=== PATIENT | female | born 1950 | race Caucasian/White ===

== ENCOUNTER 2018-11-30 17:48 | Inpatient (IN) | payer OTHER ==
[~2018-11-30] VITALS: Ht 157.5 cm; Wt 49.9 kg
--- NOTE | ~2018-11-30 | EEG ---
[facility] [place] [address] ELECTROENCEPHALOGRAM Name: VINITA WARD Room #: 525B-B [facility] IN M.R.#: [id number] ������������������ Admission: 11/30/18 ������������������ Attend Phys: Landy Hinkle Discharge: 12/09/18 ������������������ Date of : 54 Report #: [id number] ����������������������������������������������������������������� [id number] THIS REPORT FOR: //name// CC: Gibson Kelly FAM unknown DATE OF SERVICE: 12/08/2018 This patient is being evaluated for tremors. EEG was done by placing the electrodes by standard 10-20 system of electrode placement. Both referential and sequential montages were used for recording. Background activity in this patient's EEG is about 8 Hz and 30 microvolt. The patient went to sleep and that was associated with bilateral slowing and vertex sharp waves. Photic stimulation is unremarkable. Throughout the record, no active epileptiform activity was noticed. IMPRESSION: This is an abnormal electroencephalogram because it is intermixed with theta range slowing on both sides. That is a nonspecific abnormality, which can occur with encephalopathy, effects of psychotropic medication, dementia, etc. Clinical correlation is recommended. No active epileptiform activity was noticed. Thank you very much for this referral. ���������������������������������������� ���������������������������������������� By: ��������������������������������������������� 1310 1315 Sunday Rodriguez MD /nt
[~2018-11-30 17:48] MED LIST: ASPIRIN325 PO; ATIVAN2 MG PO; CELEXA40 MG PO; CYMBALTA60 MG PO; NORTRIPTYLINE H50 M3 PO; PLAVIX 75 MG TA75 MG PO; TOPROL XL100 MG PO; ZOCOR PO
[2018-11-30 17:58] VITALS: BP 104/48
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
[2018-11-30 20:33] LABS: ABSOLUTE NEUTROPHILS 4.7 thou/uL (1.4-8.2); EOSINOPHILS 1.4 % (0.0-3.0); HEMATOCRIT 41.3 % (37.0-47.0); HEMOGLOBIN 14.3 gm/dL (12.0-15.0); LYMPHOCYTES 29.4 % (24.0-44.0); MCH 33.9 pg (26.0-34.0); MCHC 34.5 g/dL (28.0-37.0); MCV 98.2 fL (80.0-100.0); MONOCYTES 5.9 % (1.0-8.0); PLATELET COUNT 197 thou/uL (150-400); POLYS 62.3 % (36.0-66.0); RBC 4.21 mil/uL (4.20-5.00); RDW 15.4 % (10.5-14.5); WBC 7.5 thou/uL (4.0-11.0)
[2018-11-30 20:34] LABS: URINE BILIRUBIN NEGATIVE (Negative); URINE BLOOD TRACE (Negative); URINE CLARITY CLEAR; URINE COLOR YELLOW; URINE GLUCOSE-RANDOM* NEGATIVE (Negative); URINE KETONES NEGATIVE (Negative); URINE LEUKOCYTES-REFLEX NEGATIVE (Negative); URINE NITRITE-REFLEX NEGATIVE (Negative); URINE PROTEIN (DIPSTICK) NEGATIVE (Negative); URINE SPECIFIC GRAVITY <= 1.005 (1.005-1.035); URINE UROBILINOGEN 0.2 E.U./dl (0.2-1.0)
[2018-11-30 20:41] LABS: CALCIUM 9.1 mg/dL (8.5-10.1); CREATININE 0.8 mg/dL (0.6-1.0); POTASSIUM 3.9 mmol/L (3.5-5.1)
[2018-11-30 21:49] LABS: FOLIC ACID 11.7 ng/mL (8.6-58.9)
[2018-11-30 22:15] VITALS: BP 144/72
[2018-11-30 22:45] VITALS: BP 151/81
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
--- NOTE | 2018-12-01 06:38 | NUR ---
PATIENT SLEPT 5.4 HOURS PER APIGEE DEVELOPER, SEE LATE ADMISSION TIME.
[2018-12-01 08:00] VITALS: BP 131/81
[2018-12-01 09:04] VITALS: BP 131/76
--- NOTE | 2018-12-01 09:20 | NUR ---
PT ATE BREAKFAST AND NOW ATTENDING AM GROUP.
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
--- NOTE | 2018-12-01 11:58 | NUR ---
SW left a voicemail for pt brother to schedule a family meeting. SHRUTHI provided contact information, and requested a return call. SHRUTHI will follow-up with pt on tomorrow.
--- NOTE | 2018-12-01 12:30 | NUR ---
PT ENCOURAGED TO TAKE A SHOWER, PT RESISTED AT FIRST STATING SHE WILL WAIT TILL SHE GOES HOME. PT HAIR MATTED, AND DIRT BETWEEN TOES. PT SET UP FOR SHOWER AND WENT AHEAD AND TOOK SHOWER. PT HAS SKIN TEAR TO LEFT HAND SEWN UP BY SUTURES. NO SIGNS OF REDDNESS. WILL REPLACE DRESSING AFTER SHOWER.
--- NOTE | 2018-12-01 12:40 | NUR ---
PT STATED SHE FELT ALOT BETTER. TOOK PICS OF LEFT HAND, APPLIED VASELINE GAUZE TO SUTURED AREA AND WRAPPED WITH KERLEX AND SECURED WITH TAPE.
[2018-12-01] MEDS ORDERED: LOPRESSOR50 PO (13:19)
--- NOTE | 2018-12-01 14:21 | NUR ---
SW schedule family meeting on December 06, 2018.
--- NOTE | 2018-12-01 14:50 | NUR ---
DR. PATEL HERE TO YAIR. PT ALSO LOOKED AT BLACK HEAD ON BACK, RECOMENDED A DERMITOLOGIST TO FOLLOW-UP.
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
[2018-12-01 19:37] VITALS: BP 149/86
--- NOTE | 2018-12-01 19:47 | NUR ---
ASSUMED CARE @ 1900, IN ROOM, LYING IN BED, EYES OPEN, ANSWERS QUESTIONS APPROPRIATELY, A&OX3-4. REPORTS EATS VEGAN, DRESSING ON VENTRAL HAND HAS A DRESSING C/D/I. WILL CONTINUE TO MONITOR.
[2018-12-02 01:05] LABS: HIV ANTIBODY Non Reactive (Non Reactive)
[2018-12-02 03:02] VITALS: BP 149/86
--- NOTE | 2018-12-02 08:04 | NUR ---
I dressed Patrizia wound on her L hand as the drsg was coming off. She is able to wiggle her fingers without any pain or stiffness. The dorasl side of her L hand is bruised. The sitiches are dry and intact. Cap refill < 2 sec. She denies any pain. The area is warm to touch.
[2018-12-02 08:17] VITALS: BP 133/80
--- NOTE | 2018-12-02 08:20 | EKG ---
[place] [address] [employer] [place] [place] [address] ELECTROCARDIOGRAM REPORT Name: VINITA WARD Room #: 52[facility] ADM IN M.R.#: [id number] ������������������ Admission: 11/30/18 ������������������ Attend Phys: Gibson Kelly DO Discharge: ������������������ Date of : 54 Report #: [id number] ����������������������������������������������������������������� [id number] THIS REPORT FOR: //name// [facility] Test Date: 2018-12-01 Test Time: 16:06:43 Pat Name: VINITA WARD Department: Room: [facility] B Gender: F Residential Subcontractor: ZAY : 1950 Requested By: Gibson Kelly Order Number: [id number] MD: Timmy Galdamez Measurements Intervals Bement Rate: 103 P: 78 SD: 182 QRS: 39 QRSD: 103 T: 66 QT: 375 QTc: 491 Interpretive Statements Sinus tachycardia Right atrial enlargement Nonspecific ST segment abnormality Compared to ECG 12/06/2013 08:19:17 Atrial abnormality now present Electronically Signed On 12-02-2018 8:20:22 CDT by Timmy Galdamez [email or web address] ��������������������������������������������� <ELECTRONICALLY SIGNED> ���������������������������������������� By: Timmy Galdamez MD, [facility] ��������������������������������������������� 12/02/18 0820 1606 05 Timmy Galdamez MD, [facility] /EPI
--- NOTE | 2018-12-02 11:14 | NUR ---
PSYCHOSOCIAL ASSESSMENT Diagnosis: DEMENTIA, GRAVE DISABILITY Admit Date: 11/30/18 Psychiatrist: SNEHAL Symptoms associated with current admission: Depressed mood Hopelessness Activity level change Presenting problems: Pt had a fracture wrist. Pt was exhibit confusion. Pt house is not acceptable to live in. Pt activity level change which cause her to feel hopeless. Precipitating Factors: Non-compliance psychothx Non-compliance psychothx Non-compliance medication Comments: Pt stated that she does not sleep well. Pt stated that she is up at night. History of High Risk Behavors: Other Suicide Risk Factors: D A-Signs of alcohol/substance abuse w/ suicide ideation B-Recent suicidal thoughts or attempts C-Recent thoughts or attempts of harming someone else D-Altered mental status due to psychiatric/chem dep etiology E-The behavior exists - add comment PSYCHIATRIC HISTORY Age of onset: 68 Prior hospitalizations: Denies hx hospitalization Hospital names and dates, if available: Most Recent Outpatient HX: Denies prior OP services Additional information: Legal Status: Voluntary Guardian/Conservatorship type: Contact name: Contact phone: Other: Name: Phone: Other legal issues: (Arrests/convictions Current Status) None P.O. Name and Phone #: FAMILY HISTORY Place of : [place], [place] Raised in: [place] # Siblings & order: Pt has 2 sibilings, youngest Describe relationships within family of origin: Pt stated that she has close relationship. Pt stated that she speaks with her brother who lives here everyday. Any psychiatric or substance abuse problems within family of origin: Y Has patient been sexually or physically abused, neglected or been taken advantage of financially? N Has the abuse been reported? N Other pertinent family information: Marital history/significant relationships: Domestic violence: N Children ages & who is caring for them: Pt does not have a child Is child welfare involved? N Drug history: None Alcohol Use: Frequency: Quantity: Have you ever felt you ought to Cut down on drinking? Have people Annoyed you by criticizing your drinking? Have you ever felt bad or Guilty about your drinking? Have you ever had a drink first thing in the morning to steady your nerves/get rid of a hangover(Eye dopeman) CAGE TOTAL 0 If CAGE score is 3 or more, notify provider for withdrawal orders! AXIS SCREENING TOOL Patterson I Mood Disorders: Depression Patterson II Personality/Mental Retardation: Patterson III Medical Impairment: A-fib Constipation Seizures Patterson IV Problem(s) with: Housing Health care services Other psych/environ prob Patterson V: 50-Serious w/impairment Additional Patterson comments: PERSONAL BACKGROUND Relevant cultural issues (ethnicity, values, beliefs, spiritual): Spiritual Hindu: Tenriism Importance of jew to patient: High What hobbies/interests does the patient have? Dogs Knit Reading Piano Listening music Guitar Watching political news Sexual orientation (relevant impact to current treatment): Heterosexual : Where did you serve: Branch of service: Rank: Discharge status: Are you a combat ? Occupational/Work: Do you work? N Do you want to work? N How many hours do you work/week? 0 How many jobs have you had in the past 5 years? 0 Do you need assistance finding a job? N Does the patient need assistance in job training? N Source of income: SSI Does patient have a Payee? Payee name: Approximate monthly income: 1000 Does patient have adequate funds for next 30 days? Y Education background: Bachelor degree Highest grade completed: 12th grade Other Educational/training programs: Functional deficits: Explain functional deficits: Current living situation: House/apartment Address/phone where pt. is living: Pt lives in a house alone Does the patient plan to continue there after DC? Yes Patient lives with: Alone Will family/significant other be involved in treatment? Other community support services utilized: Pt will be assessed for memory care setting Support System Available (family/friend) Name: Jagjit Zuniga Relationship: Brother Name: Palmer Cleary Relationship: Sister Name: Phone: Relationship: Patient strengths: Family support Motivated Insight Education Patient's assets: Verbal Patient's weaknesses: Chronic hx mental illness Poor social skills Poor relationships Lack of housing Health problems Additional weaknesses: Pt has not being able to clean her house. Pt has not been able to complete her ADL's. Pt has not seen a doctor in several decades. Patient's perception of current director of social work/case management needs: Pt stated SS is someone who assist with a pt wellbeing. PRELIMINARY DISCHARGE PLAN Discharge plan/Community resource contacts: pt will be d/c home or memory care unit. Discharge needs: Pt will need a referral to a memory care unit. Problems anticipated on discharge: Compliance w/ med regimen Living arrangements Comments: (factors affecting DC plan/pt. response/interventions) Pt will need a memory care setting.
--- NOTE | 2018-12-02 16:21 | NUR ---
SW faxed a referral to [facility]. SW attention it to Carlota. SW will have weekend SW follow-up on weekend notes.
--- NOTE | 2018-12-02 17:28 | NUR ---
COOPERATIVE WITH REQUESTS OF STAFF THIS SHIFT-COMPLIENT WITH MEDS AND ASSESSMENT AND SMILES AND GREETS STAFF AND PEERS PLEASANTLY. DOES APPEAR UNKEMPT HAIR UNCOMBED,CLOTHING WITH HOLES
[2018-12-02 20:12] VITALS: BP 114/68
[2018-12-02 21:05] LABS: SYPHILIS AB Negative (Negative)
--- NOTE | 2018-12-02 21:55 | NUR ---
ASSUMED CARE OF THE PT AT 1914 PM. ALERT ET ORIENTED X 3. MAKES NEEDS KNOWN. WAS SITTING IN THE DAYROOM THIS PM, WHEN THIS FALL INTERN CAME ON DUTY. HEART RATE REGULAR, LUNGS CLEAR BILATERALLY, RESP., EVEN, AND UNLABORED. +BS HEARD IN ALL 4 QUADRANTS. RATES HER ANXIETY A 6/10 AND HER DEPRESSION A 5/10. DENIES SI AND HI CURRENTLY. DENIES A/V HALLUNICATIONS. THE PT KEPT TALKING ABOUT HOW HER BROTHER HAD NOT BEEN OUT TO SEE HERE AND THAT SHE NEEDED CLOTHING. DENIES PAIN AT THIS TIME. REMAINS ON 12 MINUTE CHECKS FOR HER SAFETY.
--- NOTE | 2018-12-03 00:21 | NUR ---
THE PT VOMITED X 1 THIS EVENING SHIFT. THIS BANDSAW OPERATOR ASSISTED THE PT BACK TO BED, STATED THAT SHE COULD GET ZOFRAN IN 15 MINUTES AT THAT TIME. AT 1205 AM, MEDICATED THE PT WITH ZOFRAN ODT, WHICH SHE TOOK ORDERED. STAFF HAD PUT THE HEAD OF HER BED UP EARLIER IN THE SHIFT, SHE STATED THAT SHE FELT BETTER, THEN SHE TOOK THE ZOFRAN. SHE STATED THAT SHE HOPED THAT SHE WOULD BE ABLE TO SLEEP NOW.
--- NOTE | 2018-12-03 06:00 | NUR ---
THE PT SLEPT 8.75 HOURS LAST NIGHT.
[2018-12-03 07:30] VITALS: BP 124/85
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
[2018-12-03 19:42] VITALS: BP 120/70
--- NOTE | 2018-12-04 05:05 | NUR ---
Care assumed of patient at 1900: Patient alert and oriented x4. Patient pleasant and cooperative. Patient has friended other peers on the unit. No s/s of seizure activity. Patient denies any nausea/vomiting. Patient took medications whole without difficulty. Patient reports that she is able to sleep better with the head of her bed elevated. Patient reports that if she lays flat, she can feel her acid reflux in her throat. Patient requested Trazodone PRN to assist her go to sleep. Patient reports that it is helpful in assisting her to relax. Patient provided PRN Trazodone 25mg at 2105. Patient reports that she is excited about a [employer] marathon that will be on TV 12/04/18. Denies any pain.
[2018-12-04 07:45] VITALS: BP 114/70
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
--- NOTE | 2018-12-04 13:47 | NUR ---
VISIBLE ON UNIT IN DAYROOM-INTRUSIVE AT TIMES IN HIS ATTEMPTS TO CARETAKE OTHERS-BUT REDIRECTS WITH PROMPTING,VERBAL QUEING. NO NOTED OR REPORTED AGITATION WITH REDIRECT SO FAR THIS SHIFT-MILDLY RESISITIVE WITH AM MEDS STATING "THAT IS TOO MANY I ONLY TAKE A COUPLE" TOOK THORAZINE AND B12 AND APPROX 1 HR LATER TOOK ALL 5 VIT D TABLETS REQUIRED FOR AM DOSING.GAIT STEADY WITHOUT Assistive DEVICES. ORINETED TO NAME ONLY. DENIES C/O PAIN/DISCOMFORT
[2018-12-04 19:40] VITALS: BP 142/72
[2018-12-04 19:57] VITALS: BP 142/72
--- NOTE | 2018-12-05 06:13 | NUR ---
Care assumed of patient at 1900 on 12/04/18: Patient smiling, pleasant, cooperative. Patient interacting well with staff and peers. Patient alert and oriented x3. Patient showing patience toward other peers and assisting in areas she is able. Patient enjoyed her day. Patient took medications whole without difficulty. Patient denies SI/HI/AH/VH. No s/s of delusions or paranoia present. Patient slept 9 hours this shift.
[2018-12-05 07:30] VITALS: BP 157/91
[2018-12-05 07:55] VITALS: BP 157/91
--- NOTE | 2018-12-05 09:30 | NUR ---
PT HAS LEFT HAND WRAPPED IN KERLEX. PT STATED SHE HASN'T HAD A DRESSING CHANGE IN A FEW DAYS. PT WEARING GOWN THIS AM. PT JUST WANTING TO DO EVERYTHING IN HER CARE IN ORDER FOR HER TO BE ABLE TO RETURN BACK TO HOME SETTING. LUNGS CLEAR. BRUISING TO LEFT HAND.
--- NOTE | 2018-12-05 15:30 | NUR ---
CHANGED DRESSING TO LEFT HAND. CLEANED WITH NS AND PATTED DRY. PT SUTURES INTACT EXCEPT FOR TOP AREA OF HAND. APPLIED OPTIFOAM GENTLE AG+, WRAPPED WITH KERLEX AND SECURED WITH TAPE.
--- NOTE | 2018-12-06 03:24 | NUR ---
ASSUMED CARE @ 19:00, IN ROOM, IN BED, EYES OPEN, RESPONDS TO VOICE. ASSESSMENT COMPLETE, DRESSING ON HAND IS C/D/I. A&OX3. HAIR AND CLOTHES APPEAR CLEAN. STILL HAS TANGLES IN THE BACK OF HER HAIR. A&O X3. DENIES SI AND HI. DENIES DEPRESSION AND ANXIETY. HS MEDS GIVEN WHOLE AND WITH WATER. WILL MONITOR Q 12 MINUTES FOR PATIENT SAFETY.
[2018-12-06 08:53] VITALS: BP 158/88
--- NOTE | 2018-12-06 11:02 | NUR ---
[id number]: Report rec from noc shift, care assumed. Sleeping in bed, awakened for a.m. meal, pt shakey with ambulation, ambulates to DR assisted w/1 staff, gait unsteady and weak. Dsg to Lt hand/arm dry/intact, bruising noted to Lt fingers, no edema noted to fingers. Feeds self with set-up assist, appetite fair, takes meds whole w/o difficulty.
--- NOTE | 2018-12-06 12:35 | NUR ---
SHRUTHI sent a referral to [facility] for Mediciad.
--- NOTE | 2018-12-06 12:36 | NUR ---
MOY and Dr. Kelly concerning pt being placed in nursing facility. Dr. Kelly diagnosed with Major Neurocognitive Disorder. MOY mention that pt does not have Medicaid. MOY mention that she will send a referral to [facility]. [facility] provided NF that assist with memory care, and accept Medicaid pending. MOY will follow-up with pt on tomorrow.
[2018-12-06 19:48] VITALS: BP 192/113
--- NOTE | 2018-12-07 05:24 | NUR ---
ASSUMED CARE @ 1900, IN DAY ROOM WITH A PLEASANT AFFECT. CLOTHES ARE CLEAN BUT WORN. HIGH BLOOD PRESSURE @ 19:45 192/113 104 22 98.2, DR BRIAN REQUESTED THAT HOSPITALIST BE CALLED FOR AN ORDR FOR BLOOD PRESSURE MEDICATION. B/P RETAKEN MANUALLY @ 22:30, 168/104 104. JONNY MONROY NP ORDERED METOPROLOL 75 MG ONE TIME DOSE, THEN DAILY. GIVEN AND FOLLOW UP B/P 155/94 104 @ 00:50. SLEPT WELL THROUGHOUT THE NOC.
--- NOTE | 2018-12-07 06:09 | NUR ---
SLEPT 8.6 HOURS OVERNIGHT.
--- NOTE | 2018-12-07 08:11 | EKG ---
[address] [place] [address] ELECTROCARDIOGRAM REPORT Name: VINITA WARD Room #: [facility] ADM IN M.R.#: [id number] ������������������ Admission: 11/30/18 ������������������ Attend Phys: Gibson Kelly DO Discharge: ������������������ Date of : 54 Report #: [id number] ����������������������������������������������������������������� [id number] THIS REPORT FOR: //name// [facility] Test Date: 2018-12-06 Test Time: 08:40:27 Pat Name: VINITA WARD Department: Room: [facility] Gender: F [employer]: [employer] : 1950 Requested By: Gibson Kelly Order Number: [id number] MD: Timmy Galdamez Measurements Intervals [place] Rate: 102 P: 69 AL: 156 QRS: 8 QRSD: 130 T: 64 QT: 381 QTc: 497 Interpretive Statements Sinus tachycardia Nonspecific ST segment abnormality Compared to ECG 12/01/2018 16:06:43 Right atrial abnormality no longer present Electronically Signed On 12-07-2018 8:11:46 CDT by Timmy Galdamez [email or web address] ��������������������������������������������� <ELECTRONICALLY SIGNED> ���������������������������������������� By: Timmy Galdamez MD, [facility] ��������������������������������������������� 12/07/1811 9 Timmy Galdamez MD, [facility] /EPI
[2018-12-07 09:25] VITALS: BP 150/74
--- NOTE | 2018-12-07 12:17 | NUR ---
GAIT IS WEAK,POOR BALANCE OBSERVED,APPEAR TO HAVE DIFFICULTY PROCESSING ONE STEP COMMANDS AND DOES NOT INITIATE COMPLETING ADLS WITHOUT CONSTANT QUEING AND PROMPTING. SPEECH IS GARBELED DIFFICULT TO UNDESRTAND AND AT TIMES INCOHERENT. BP INITALLY THIS AM 150/74-RECHECKED MANUALLY AND IS 126/78. USING ROLLER WALKER FOR AMBULATION
--- NOTE | 2018-12-07 13:51 | NUR ---
Recreational Therapy Weekly Progress Note Date of Admission: 11/30/18 Date of Activity Therapy Assessment: 12/03/18 Activity Goal: Increase self esteem Initial Goal: 2 Group activities/day Weekly progress towards goal: On track Group participation level: Moderate Behaviors observed: Patient participates in all groups unless occupied with meeting, etc. Patient is usually a full participant, though within the last 2 days of this note patient has become increasingly disoriented, softer spoken, and less engaged. Patient has developed relationships within peers in the milieu. Minimal depressive statements and less focused on home and dogs. Plan: No change towards goal
[2018-12-07 19:36] VITALS: BP 163/91
--- NOTE | 2018-12-07 23:36 | NUR ---
NURSES NOTE - SAT DOWN IN DAY ROOM WITH PT WHILE PT WAS EATING ICE CREAM, SHE WAS VISIBLY HAVING DIFFICULTY EATING ICE CREAM WITH LEFT HAND. SHE SOFTLY SPOKE TO THIS NURSE IN A GARBLED EFFECT STATING 'WILL YOU HELP ME.' THIS NURSE ASSISTED PT IN EATING. DURING MEDICATION PASS PATIENT WAS UNABLE TO TAKE PILLS HERSELF. THIS NURSE ALSO OFFERED HELP TAKING PILLS FOR WHICH PATIENT THANKED. THIS NURSE ASKED PATIENT TO PLANE RUNNER RIGHT AND LEFT POINTER FINGERS AND SQUEEZE, THIS NURSE NOTICED LESS PLANE RUNNER IN LEFT HAND. SHE APPEARS WITH A FLAT AFFECT, FAIR TO POOR HYGIENE AND DRESS, BUT WAS PLEASANT. SHE REPORTS FEELING OF DEPRESSION ET ANXIETY, SHE WOULD NOT VERBALIZE A TRIGGER. SHE DENIED SI/HI AT TIME OF ASSESSMENT. NURSING STAFF ASSISTED PATIENT WITH AN UNSTEADY GAIT TO HER ROOM TO WHICH PATIENT LAYED DOWN. WILL CONTINUE TO MONITOR AND MAINTAIN ALL PRECAUTIONS FOR SAFETY.
[2018-12-08 07:30] VITALS: BP 166/93
--- NOTE | 2018-12-08 08:00 | NUR ---
PT GETTING UP THIS AM PER NURSING TO W/C. PT NOT ABLE TO HOLD SELF UP LONG IN BED. PT HAS WOUND TO LEFT HAND, DRESSING INTACT. PT NOTICED PHYSICAL DEGRESSION. PT WEAK TO SPEAKING. PT STATED SHE FELT GOOD TODAY. PT HAS BRUISING TO LOWER LEGS. PT ABLE TO STAND TO SIT IN W/C.
--- NOTE | 2018-12-08 08:30 | NUR ---
PT NEEDED FED BREAKFAST AFTER FEEDING SELF A FEW BITES OF CREAM OF WHEAT AND APPLESAUCE. NEEDED TO HELP WITH DRINKING OUT OF CUP. PT TOO WEAK TO SUCK UP THE STRAW.
[2018-12-08 10:09] VITALS: BP 166/93
[2018-12-08 11:56] LABS: ABSOLUTE NEUTROPHILS 10.1 thou/uL (1.4-8.2); BASOPHILS 0.5 % (0.0-2.0); HEMOGLOBIN 14.7 gm/dL (12.0-15.0); MCH 33.4 pg (26.0-34.0); MCHC 34.3 g/dL (28.0-37.0); MCV 97.3 fL (80.0-100.0); MONOCYTES 5.8 % (1.0-8.0); PLATELET COUNT 300 thou/uL (150-400); POLYS 83.7 % (36.0-66.0); RBC 4.42 mil/uL (4.20-5.00); RDW 14.3 % (10.5-14.5)
[2018-12-08 12:05] LABS: CALCIUM 9.5 mg/dL (8.5-10.1); CREATININE 0.8 mg/dL (0.6-1.0); POTASSIUM 4.1 mmol/L (3.5-5.1)
--- NOTE | 2018-12-08 12:50 | NUR ---
LAYED PT DOWN X1 ASSIST. WOUND CARE TEAM HERE TO DRESS LEFT HAND.
--- NOTE | 2018-12-08 13:05 | NUR ---
STRAIGHT CATH PER ORDER TO OBTAIN URINE. PT HAD 400ML OUT OF STRAIGHT CATH, STAW COLOR URINE, CLEAR.
[2018-12-08 13:12] LABS: URINE BILIRUBIN NEGATIVE (Negative); URINE BLOOD NEGATIVE (Negative); URINE CLARITY CLEAR; URINE COLOR YELLOW; URINE GLUCOSE-RANDOM* NEGATIVE (Negative); URINE KETONES TRACE (Negative); URINE LEUKOCYTES-REFLEX NEGATIVE (Negative); URINE NITRITE-REFLEX NEGATIVE (Negative); URINE PROTEIN (DIPSTICK) NEGATIVE (Negative); URINE UROBILINOGEN 0.2 E.U./dl (0.2-1.0)
--- NOTE | 2018-12-08 13:42 | NUR ---
WOUND CARE FOLLOW UP; ROUNDING WITH DR ADDIS HAMILTON AND SARAH IRRIGATION FOREMAN. THE LEFT HAND DEHISCENCE TRAUMATIC WOUND LOOKS MUCH BETTER TODAY. NO S/S OF INFECTION, WITH MINIMAL DRAINAGE. RECOMMENDATION; CONTINUE CURRENT POC. DISCUSSED WITH JADON
[2018-12-08 15:17] LABS: URINE POTASSIUM-RANDOM* 42.2 mmol/L
--- NOTE | 2018-12-08 17:30 | NUR ---
ASSISTED PT TO EAT FOR DINNER. PT SITTING IN W/C, PT ATE SOME SHERBERT AND ALSO DRANK SOME CRANBERRY JUICE. SHE ALSO DRANK SOME WATER. PT DIDN'T WANT TO EAT THE BEANS.
[2018-12-08 20:40] VITALS: BP 139/82
--- NOTE | 2018-12-08 22:32 | NUR ---
PT SLEEPING IN W/C IN DAY ROOM UPON ARRIVAL TO SHIFT. PT ASSISTED BY TWO PEOPLE TO BED. PT WAS ABLE TO STAND AND PIVOT WITH ASSIST . PT OPENED EYES UPON REQUEST. PT SLOUCHED WHEN SITTING AND STANDING. PT DID NOT TAKE HS MEDS, TO SLEEPY TO SWALLOW. WILL MONITOR PVR AFTER URINATION.
--- NOTE | 2018-12-09 00:37 | NUR ---
DURING ROUNDS AIDES NOTED PT AWAKE. USING ACCESSORY MUSCLES TO BREATH, ABD, CHEST SHOULDERS, BUT VERALIZATIONS ARE CLEAR. NOTED GURGLING IN THROAT BUT PT WONT COUGH TO CLEAR. LUNGS WITH WHEEZE BUT PT WONT COUGH TO SEE IF CLEARS. PT DOES HAVE HAND TREMORS BUT THIS IS A PART OF HER HISTORY. TEMP 96.8, BP 160/100, 88. 88% R/A. SITE PROJECT MANAGER CALLED REVIEWED THE ABOVE, AND TOLD RECENT UA AND COMPLETED. PRN RT TXS ORDERED. RT PAGED AND WILL SEE PT. PT DENIES DISCOMFORT. SHE ASKED FOR ROOM TEMP TO BE DECREASED AND SOCKS TO BE REMOVED AND SIPS OF WATER, ALL PROVIDED.
--- NOTE | 2018-12-09 01:10 | NUR ---
RT CAME GAVE TX. O2 3L 94% AFTER TREATMENT. NOTED COARSE THROUGHOUT. PT STARTED COUGHING, SPUTUM NOTED BY NURSE CLEAR. BPM SOLUTION ARCHITECT NOTIFIED SHE REVIEWED YESTERDAYS CXR RE CHRONIC CONDITION. AT THIS TIME NO NEW ORDERS UNLESS PT DEVELOPS FEVER.
--- NOTE | 2018-12-09 03:23 | NUR ---
PT STATED SHE NEEDED TO URINATE, UP TO BSC, NO URINATION, BLADDER SCAN 335. PT STRAIGHT CATHETERIZED 350.
--- NOTE | 2018-12-09 05:38 | NUR ---
CELL TENDER HELPER UPDATED RE URINE RETENTION.
--- NOTE | 2018-12-09 05:41 | NUR ---
PT ASKED IF SHE WANTED ANOTHER RT TX SHE STATED YES, NOTED USE OF ACCESSORY MUSCLES WITH BREATHING, ABD SHOULDERS.
--- NOTE | 2018-12-09 05:59 | NUR ---
RT GAVE TX, 02 SAT 86 TO 87 ON 3L, SWITCHING TO MASK. RT SUGGESTED CALLING HOSPITALIST FOR TRANSFER, CRIB ATTENDANT CONTACTED STAT CXR ORDERED AND TOLD TO CALL FOR RAPID RESPONSE. RADIOLOGY PAGED
[2018-12-09 06:07] LABS: CALCIUM 9.6 mg/dL (8.5-10.1); CREATININE 0.7 mg/dL (0.6-1.0); POTASSIUM 3.5 mmol/L (3.5-5.1)
[2018-12-09 06:09] LABS: BE(vivo) -2.5 mmol/L (-2 to +3); HCO3 21.8 mmol/L (22.0-26.0); PO2 53.6 mmHg (80.0-100.0); pH 7.389 (7.360-7.450); sO2 87.7 % (92.0-98.0)
--- NOTE | 2018-12-09 06:25 | NUR ---
TELEX OPERATOR ACTIVATED FOR INCREASING O2 DEMANDS. ON ASSESSMENT, PATIENT IN RESP DISTRESS WITH TACHYPNEA AND ACCESSORY MUSCLE USE NOTED. SEE RAPID RESPONSE DOCUMENTATION FOR INTERVENTIONS AND FURTHER DETAILS. PT DIRECT ADMIT TO CCT.
--- NOTE | 2018-12-09 06:30 | NUR ---
PTS BROTHER CALLED AND NOTIFIED OF TRANSFER TO ICU. DR JACKSON NOTIFIED OF TRANSFER. REPORT GIVEN TO ICU NURSE. WINDSHIELD TECHNICIAN AND FLOOR STAFF TRANSFERED PT TO ICU IN BED WITH NON REBREATHER AND MONITOR.
[2018-12-09 07:03] LABS: HEMATOCRIT 45.5 % (37.0-47.0); HEMOGLOBIN 15.6 gm/dL (12.0-15.0); MCH 33.5 pg (26.0-34.0); MCHC 34.2 g/dL (28.0-37.0); MCV 98.1 fL (80.0-100.0); RBC 4.64 mil/uL (4.20-5.00); RDW 14.3 % (10.5-14.5); WBC 15.1 thou/uL (4.0-11.0)
--- NOTE | 2018-12-09 08:26 | HC ---
[facility] [place] [address] CONSULTATION Name: VINITA WARD Room #: 525B-B [facility] IN ..#: [id number] Admission: 11/30/18 ������������������ Attend Phys: Gibson Kelly, DO Discharge: 12/09/18 ������������������ Date of : 54 Report #: [id number] THIS REPORT FOR: //name// CC: Gibson Kelly FAM unknown DATE OF SERVICE: 12/07/2018 CHIEF COMPLAINT: Traumatic injury to the left hand. HISTORY OF PRESENT ILLNESS: This is a 68-year-old female patient who is on the Geriatric Psych Unit and had injured her hand when she went to use the restroom on the night of 11/30/2018. She had a primary repair performed in the Emergency Department and she was admitted to the Geriatric Psych Unit for inpatient psychiatric care by Dr. Kelly. The wound has been cared for by the wound care nurse here. It is felt that it is not improving and I have been asked to see her with regard to additional wound care recommendations. The patient is unable to provide much information about herself. PAST MEDICAL HISTORY: Positive for dementia, hand laceration due to a fall from ground level. She has a history of vitamin B12 deficiency, history of a seizure disorder, coronary artery disease, COPD, history of tobacco abuse. FAMILY HISTORY: Unknown. REVIEW OF SYSTEMS: Not obtainable due to the patient's mental status. PHYSICAL EXAMINATION: VITAL SIGNS: At this time include temperature 99, pulse 91, respiratory rate of 19, blood pressure 162/91. GENERAL: This is a chronically ill-appearing female patient who appears to be in no distress. HEENT: Head normocephalic. Nose and throat are clear. NECK: Supple. LUNGS: Clear. ABDOMEN: Soft. EXTREMITIES: Examination of the left hand demonstrates a curvilinear laceration to the dorsal aspect of the left hand, some of the sutures have been dislodged, some of the skin edges are rolled under. I have removed the sutures and I have debrided the edges of the wound with sterile Iris scissors, cleaned the base and a culture has been obtained. CLINICAL IMPRESSION: 1. Traumatic wound to the left hand, status post previous primary repair, now status post debridement and wound cleansing. Recommendations, we will recommend topical silver alginate and a gauze dressing to be changed daily. Antibiotics [address] [address] CONSULTATION Name: WARDVINITA Room #: 525B-B [facility] IN M.R.#: [id number] Admission: 11/30/18 ������������������ Attend Phys: Gibson Kelly, DO Discharge: 12/09/18 ������������������ Date of : 54 Report #: [id number] will be based pending laboratory studies. 2. Dementia with cognitive deficits. RECOMMENDATIONS: Overall local wound care as detailed above, nutritional support, antibiotic therapy, pending wound cultures. I appreciate being asked to see her in consultation. ��������������������������������������������� <ELECTRONICALLY SIGNED> ���������������������������������������� By: Donovan Pisano MD ��������������������������������������������� 12/09/18 0826 1624 00 Donovan Pisano MD /keren
--- NOTE | 2018-12-11 20:43 | D ---
[facility] [place] [address] DISCHARGE SUMMARY Name: VINITA WARD Room #: 525B-B [facility] IN M.R.#: [id number] Admission: 11/30/18 ������������������ Attend Phys: Gibson Kelly DO Discharge: 12/09/18 ������������������ Date of : 54 Report #: [id number] THIS REPORT FOR: //name// CC: Gibson COVINGTON unknown DATE OF SERVICE: 12/09/2018 ATTENDING PHYSICIAN: Gibson Kelly MD MARKETING ANALYST: Darron Ho MD DISCHARGE DIAGNOSES: Major neurocognitive disorder, likely due to Alzheimer disease, without behavioral disturbance. Medical comorbidities include left hand dorsal laceration, deconditioning, hyponatremia, acute respiratory failure possibly due to aspiration. Of note, the patient became hypoxic early in the morning, 12/09/2018, and was moved to the medical floor and then later to the ICU and intubated; therefore, there is no discharge medications from the psychiatry unit and care management will be a per the hospitalist and critical care physicians. REASON FOR ADMISSION: She was brought by her brother due to self-care failure. She was living alone in [facility] and in an uninhabitable structure. HOSPITAL COURSE: The patient was admitted to the Geriatric Psychiatry Unit. Initially, it was an evaluation and cognitive approach. I did put the patient on 5 mg a day of aripiprazole. The patient initially was quite active, hyperverbal. Unfortunately, on the day of 12/06/2018 when we had a family meeting with the brother to discuss diagnoses, present the neuropsychological battery that Dr. Ziegler had done, the patient had a marked change in behavior, was appearing in shock, somewhat depressed. She never recovered from the state. The day before the medical decline, CBC, BMP was done as well as urinalysis that was really nonspecific. Chest x-ray was done as well. I had the thought amongst other things that the patient may have had some SIADH from the aripiprazole, which I did discontinue; however, that remained unproven due to this medical emergency that developed of the respiratory failure. The urine sodium was 90, urine osmolality, which was 380, which is actually, if I am not mistaken, slightly more than we would expect if the patient did not have SIADH. I am unable to find a serum osmolality, so at this point, I was not able to prove any SIADH possibly associated to the aripiprazole. In any event, hospital course, the patient had a decline and thought to be affective in nature, but as best we can tell, there is likely an aspiration event which is disappointing since the patient was moved emergently before I got to the hospital to the ICU. There is no discharge mental status exam. Prognosis for [facility] [address] [place] [address] DISCHARGE SUMMARY Name: SYLVIAVINITA C Room #: 525B-B [facility] IN M.R.#: [id number] Admission: 11/30/18 ������������������ Attend Phys: Gibson Kelly DO Discharge: 12/09/18 ������������������ Date of : 54 Report #: [id number] this patient is poor given her dementia and medical complications. I spoke with the brother, with Dr. Rob. LABORATORIES: I will leave with just a brief review as above. Further management downstairs in the ICU. If the patient recovers medically, I will be happy to consult further on the case or sooner. ��������������������������������������������� <ELECTRONICALLY SIGNED> ���������������������������������������� By: Gibson Kelly DO ��������������������������������������������� 12/11/18 2043 0947 1037 Gibson Kelly DO /nt
== END 2018-12-09 06:41 | DRG 57 ==
LOC: ER 17:48 → SBH 21:55 → EROBS 21:55 → SBH 21:55
PROVIDERS: Emergency Medicine; Nurse Practitioner Family; ADMIT Psychiatry & Neurology Psychiatry
DX: G30.9 Alzheimer's disease, unspecified (principal); F02.80 Dementia in other diseases classified elsewhere, unspecified severity, without behavioral disturbance, psychotic disturbance, mood disturbance, and anxiety; J44.9 Chronic obstructive pulmonary disease, unspecified; G40.909 Epilepsy, unspecified, not intractable, without status epilepticus; I25.10 Atherosclerotic heart disease of native coronary artery without angina pectoris; Z60.2 Problems related to living alone; E53.8 Deficiency of other specified B group vitamins; S61.412A Laceration without foreign body of left hand, initial encounter; D72.829 Elevated white blood cell count, unspecified; F32.9 Major depressive disorder, single episode, unspecified; W18.39XA Other fall on same level, initial encounter; Y93.89 Activity, other specified; Y92.89 Other specified places as the place of occurrence of the external cause; Y99.8 Other external cause status; I25.2 Old myocardial infarction; Z71.6 Tobacco abuse counseling; Z87.81 Personal history of (healed) traumatic fracture
CPT/HCPCS: 10880

== ENCOUNTER 2018-12-09 06:15 | Inpatient (IN) | payer OTHER ==
[2018-12-09] VITALS (41 sets, daily range): BP systolic 80–185; BP diastolic 54–107
[~2018-12-09] VITALS: Ht 152.4 cm; Wt 46.2 kg
[~2018-12-09 06:15] MED LIST changes: +LOPRESSOR50 PO
--- NOTE | 2018-12-09 07:45 | NUR ---
REC REPORT ON PT WHO WAS JUST TRANSFERRED RIGHT AT SHIFT CHANGE, REPORTS OF RAT TEAM INTERVENTION, ASSESSED QUICKLY BEFORE REMAINING OF REPORT. PT'S SATS 86-95%, RESPIRATIONS 40, AND B/P HIGH, PAGED PHYSICIAN REC ORDERS NOC NURSE ENTERED. PT ALERT AND TALKATIVE ABLE W/MASK ON. WILL CONTINUE TO MONITOR. NEED CODE STATUS WELL MED ORDERS. SHOWED HER CALL LIGHT USE AND SHE WANTED TELEVISION ON. RT WORKING WITH HER RIGHT AT THIS MINUTE.
--- NOTE | 2018-12-09 09:21 | NUR ---
PHYSICIAN ARRIVED INQ ABOUT CXR AND ABGS THAT WERE ORDERED STAT. THEY ARE NOW IN TRANSIT. PT'S COLOR DIFFERENT, B/P LOWER, RESPIRATIONS STILL HIGH, HR AROUND 101, NOT GRIPPING NURSES HAND, MUMBLING THROUGH MASK DOES NOT FOLLOW DIRECTIONS ON SHAKING HEAD NEGATIVE/AFFIRMATIVE TO QUESTIONS YET DOES OPEN EYES. REC ALERT WE CAN NOW TRANSFER PT AT 0930
[2018-12-09 09:23] LABS: HEMATOCRIT 44.8 % (37.0-47.0); HEMOGLOBIN 15.3 gm/dL (12.0-15.0); MCH 33.3 pg (26.0-34.0); MCV 97.9 fL (80.0-100.0); RBC 4.58 mil/uL (4.20-5.00); RDW 14.2 % (10.5-14.5); WBC 11.8 thou/uL (4.0-11.0)
[2018-12-09 09:38] LABS: CALCIUM 9.5 mg/dL (8.5-10.1); CREATININE 0.6 mg/dL (0.6-1.0); POTASSIUM 3.9 mmol/L (3.5-5.1)
[2018-12-09 09:50] LABS: BE(vivo) -1.2 mmol/L (-2 to +3); PCO2 46.8 mmHg (35.0-45.0); pH 7.345 (7.360-7.450); sO2 97.8 % (92.0-98.0)
--- NOTE | 2018-12-09 10:05 | NUR ---
REPORT GIVEN TO JOE IN ICU, RT CALLED TO HELP W/TRANSPORT, WILL TRANSPORT TO ICU WITHIN NEXT TEN MINUTES
--- NOTE | 2018-12-09 12:15 | NUR ---
P.T. EVALUATION PLACED ON HOLD SECONDARY TO DECLINE IN MEDICAL STATUS AND SUBSEQUENT TX TO ICU. PLEASE RE-ORDER P.T. ONCE PT IS APPROPRIATE TO PARTICIPATE IN THERAPEUTIC ACTIVITIES.
[2018-12-09 12:24] LABS: BE(vivo) -2.1 mmol/L (-2 to +3); HCO3 24.3 mmol/L (22.0-26.0); PCO2 47.4 mmHg (35.0-45.0); PO2 74.6 mmHg (80.0-100.0); pH 7.328 (7.360-7.450); sO2 93.9 % (92.0-98.0)
--- NOTE | 2018-12-09 12:41 | NUR ---
OT ORDERS RECEIVED. UPON RECEIVING ORDERS, Pt TRANSFERED TO ICU AND IS CURRENTLY INTIBATED. WILL HOLD OT SERVICES UNTIL Pt IS MEDICALLY APPROPRIATE AND WHEN NEW ORDERS RECEIVED. THANK YOU
--- NOTE | 2018-12-09 13:30 | NUR ---
VASCULAR ACCESS CONSULTED, PT'S LABS,MEDS,HX,ORDER,AND CONSENT FOR MEDICAL NECCESITY PER DR AUSTNI REVIEWED. PT WAS PREPED AND DRAPED FOR MX BAR PRECAUTIONS. ERIN BRACHIAL WAS WIDELY PATENT WITH USG,1% LIDOCAINE 5FR TL POWER PICC TRIMMED TO 34CM INSERTED TO 0CM.SECURED. STAT CXR CONFIRMED PLACEMENT AT [facility]. PICC RELEASED FOR IMMEDIATE USE PER PROTOCOL TO JOE DIOP
--- NOTE | 2018-12-09 15:02 | NUR ---
PT ARRIVED FROM AT 1015. PLACED ON MONITOR. TELLO BIPAP, ATTEMPTED TO WEAN DOWN FIO2. SPOKE WITH FAMILY ON THE PHONE, UNSURE ABOUT ADVANCED DIRECTIVE. PT BECAME MORE TACHYPNIC AND REQUIRED MORE O2, PULManuel CALLED AND PT INTUBATED. FAMILY THEN CALLED AND STATED PT WAS TO BE DNR PER HER ADVANCED DIRECTIVE FROM 1996 THAT WAS FOUND AT PSYCH DR'S OFFICE. FAMILY INFORMED THAT WE WILL CONTINUE CARE OF PT THROUGH THE WEEKEND AND THEY CAN RE-EVALUATE ON WEDNESDAY. PLAN FOR CT TODAY.
--- NOTE | 2018-12-09 15:35 | 2DMMODE ---
[facility] [address] [place] [address] 2 D/M-MODE ECHOCARDIOGRAM Name: VINITA WARD Room #: 246-P [facility] IN [facility]#: [id number] ������������� Admission: 12/09/18 ������������� Attend Phys: Alexy Rob MD Discharge: ��� ������������� ��� Date of : 54 Date of Service: 12/09/18 1535 �� Report #: [id number] �������� ��������������������������������������������[id number] THIS REPORT FOR: //name// APPROVED REPORT Study performed: 12/09/2018 13:52:15 EXAM: Comprehensive 2D, Doppler, and color-flow Echocardiogram Patient Location: Bedside Room #: 246 Status: routine BSA: 1.43 HR: 124 bpm BP: 116/70 mmHg Rhythm: Tachycardia Other Information Study Quality: Adequate Technically limited study due to body habitus, patient on ventilator, low parasternal window. Risk Factors: Cardiac Risk Factors: Smoking Indications COPD CAD Previous [place] Dementia Hypoxia 2D Dimensions IVSd: 12.04 (7-11mm) LVOT Diam: 20.00 (18-24mm) LVDd: 28.06 mm PWd: 12.27 (7-11mm) LVDs: 18.37 (25-40mm) Volumes Left Atrial Volume (Systole) Single Plane 4CH: 17.36 mL Single Plane 2CH: 16.51 mL LA ESV Index: 17.00 mL/m2 Aortic Valve AoV Peak Sg.: 2.00 m/s AO Peak Gr.: 16.00 mmHg [facility] [address] [place] [address] 2 D/M-MODE ECHOCARDIOGRAM Name: VINITA WARD Ben Room #: 246-P [facility] IN ..#: [id number] ������������� Admission: 12/09/18 ������������� Attend Phys: Alexy Rob MD Discharge: ��� ������������� ��� Date of : 54 Date of Service: 12/09/18 1535 �� Report #: [id number] �������� ��������������������������������������������[id number] Mitral Valve E/A Ratio: 0.6 MV Decel. Time: 248.65 ms MV E Max Sg.: 0.62 m/s MV A Sg.: 1.05 m/s MV PHT: 72.11 ms Pulmonary Valve PV Peak Sg.: 1.49 m/s PV Peak Gr.: 8.91 mmHg Tricuspid Valve RAP Estimate: 7.00 mmHg Left Ventricle The left ventricle is normal size. There is normal LV segmental wall motion. Mild concentric left ventricular hypertrophy. The left ventricular systolic function is normal. The left ventricular ejection fraction is within the normal range. Mid-left ventricular pressure gradient is 28 mmHg. LVEF is 60-65%. Mild diastolic dysfunction is present (impaired relaxation pattern). Right Ventricle The right ventricle is normal size. Right ventricle is hypertrophied. The right ventricular systolic function is normal. Atria The left atrium size is normal. The right atrium size is normal. Aortic Valve The Aortic valve is sclerotic. No aortic regurgitation is present. There is no aortic valvular stenosis. Mitral Valve There is mitral annular calcification. There is no mitral valve regurgitation noted. No evidence of mitral valve stenosis. Tricuspid Valve The tricuspid valve is normal in structure. There is no tricuspid valve regurgitation noted. Pulmonic Valve The pulmonary valve is normal in structure. There is no pulmonic valvular regurgitation. [facility] [address] [place] [address] 2 D/M-MODE ECHOCARDIOGRAM Name: VINITA WARD Room #: 246-P [facility] IN [facility].#: [id number] ������������� Admission: 12/09/18 ������������� Attend Phys: Alexy Rob MD Discharge: ��� ������������� ��� Date of : 54 Date of Service: 12/09/18 1535 �� Report #: [id number] �������� ��������������������������������������������[id number] Great Vessels The aortic root is normal in size. IVC is normal in size and collapses >50% with inspiration. Pericardium There is no pericardial effusion. <Conclusion> The left ventricle is normal size. LVEF is 60-65%. The Aortic valve is sclerotic. There is mitral annular calcification. The tricuspid valve is normal in structure. The pulmonary valve is normal in structure. There is no pericardial effusion. ��������������������������������������������� <ELECTRONICALLY SIGNED> ���������������������������������������� By: Jaspreet Pierson MD ��������������������������������������������� 12/09/18 1535 1535 1535 Jaspreet Pierson MD /INF
--- NOTE | 2018-12-09 15:38 | NUR ---
CALLED SCOTTIE, JUST NOW, RE: HIS SISTER'S TRANSPORT. HE'D ALREADY SPOKEN W/SEVERAL PHYSICIANS AND EXPRESSED THANKFULNESS, PER HIS STATEMENT, ON ALL WE'VE BEEN DOING FOR HER. APOLOGIZED FOR LATE INFORMATION YET HE SAID HE'D ALREADY BEEN IN COMMUNICATION. ENCOURAGED HIM TO CALL WHENEVER HE DESIRES
--- NOTE | 2018-12-09 18:39 | HC ---
[facility] [place] [address] CONSULTATION Name: SYLVIAVINITA C Room #: 246-P [facility] IN .R.#: [id number] Admission: 12/09/18 ������������������ Attend Phys: Alexy Rob MD Discharge: ������������������ Date of : 54 Report #: [id number] THIS REPORT FOR: //name// CC: FAM unknown Alexy Rob REFERRAL PHYSICIAN: Dr. Rob. REASON FOR REFERRAL: Acute respiratory distress. HISTORY OF PRESENT ILLNESS: The patient is a 68-year-old white female who was transferred to the ICU with acute respiratory distress. A pulmonary consultation was requested. The patient has a long history of depression. She was recently admitted to the behavioral psychiatric unit. Overnight and early this morning, the patient was found to be dyspneic. She was transferred to the ICU. She was placed on BiPAP. Currently, respiratory rate is high at 30s-40 breaths per minute while on BiPAP. PO2 was 110 on FiO2 of 100%. The patient is arousable, but in distress. Most of the history is obtained from the chart. The patient was electively intubated with a 7.5 mm ET tube via a GlideScope. PAST MEDICAL HISTORY: Notable for coronary artery disease with past stent placement in 2009, anxiety and depressive disorder. COPD, severity unknown. Seizure disorder. According to records, the patient has been under psychiatric care in the past. Until after she was intubated, it was revealed the patient does have a DNR written in 1996. Family members brought to the attention. PAST SURGICAL HISTORY: Notable for lumbar laminectomy. ALLERGIES: None to medications. SHE IS ALLERGIC TO FISH PRODUCTS. MEDICATIONS: Lists reviewed. She had been on metoprolol XL 100 mg once a day, Ativan 2 mg p.o. q.i.d., nortriptyline 10 mg once a day, Celexa 10 mg once a day. FAMILY HISTORY: Unknown. SOCIAL HISTORY: The patient does smoke actively. No history of alcohol use. REVIEW OF SYSTEMS: Deferred as the patient is in respiratory distress. PHYSICAL EXAMINATION: GENERAL: She is minimally arousable, tachypneic, in moderate distress. [facility] [address] [place] [address] CONSULTATION Name: VINITA WARD Room #: 246-P [facility] IN [facility]#: [id number] Admission: 12/09/18 ������������������ Attend Phys: Alexy Rob MD Discharge: ������������������ Date of : 54 Report #: [id number] VITAL SIGNS: Temperature is 98 degrees Fahrenheit, pulse is 110, respiratory rate is 40, blood pressure 185/94 mmHg, saturation 93%. HEENT: Normocephalic, atraumatic. NECK: Supple, without lymphadenopathy or thyromegaly. CHEST: Breath sounds are decreased with moderate expiratory wheezes. CARDIOVASCULAR: Normal S1, S2. No murmurs or gallop. There is no JVD. There is no carotid bruit. Pulses are 2+/4+ bilaterally. ABDOMEN: Soft, nontender, no organomegaly or masses felt. GENITOURINARY: Deferred. RECTAL: Deferred. EXTREMITIES: There is no edema, cyanosis or clubbing. Bruising in the right knee, right [place] area. MUSCULOSKELETAL: Notable for moderate musculoskeletal atrophy. NEUROLOGIC: Notable for somnolent, arousable. No unilateral weakness. LABORATORY DATA: Portable chest x-ray shows hyperexpanded lung gomez. Sodium 125, potassium 3.9, chloride 90, CO2 of 25, BUN is 14, creatinine 0.6. WBC 11,900, hemoglobin is 15, platelets are normal. Troponin 0.1. Arterial blood gas revealed pH 7.35, pCO2 is 46, pO2 of 110 on FiO2 of 100%. IMPRESSION: 1. Acute hypercapnic hypoxic respiratory failure in this 68-year-old white female. She has a history of chronic obstructive pulmonary disease. Chest x-ray is clear. Etiology probably related to exacerbation of chronic obstructive pulmonary disease. No obvious evidence of pneumonia. 2. Depression and anxiety disorder. 3. Chronic obstructive pulmonary disease, severity unknown. 4. History of dementia. 5. Recent fall, with some skin abrasions and laceration and bruising in the lower extremities. 6. Alzheimer disorder. 7. Leukocytosis, possibly reactive. No obvious source at this time. 8. History of seizure disorder. 9. Coronary artery disease with past stent. 10. Tobacco abuse. RECOMMENDATION: We proceeded with intubation due to worsening respiratory distress. Portable chest x-ray is pending. We will add bronchodilators, corticosteroids along with broad spectrum antibiotics. DVT and GI prophylaxis recommended. MEDICAL DIRECTIVE: She apparently has a DNR that was written in 1996 after we had intubated the patient. Discussed with family. We will continue current care for now and see if we can extubate the patient soon in the next few days. If unable, will discuss with family regarding withdrawal of ventilator care. [address] [address] CONSULTATION Name: VINITA WARD Room #: 246-P [facility] IN M.R.#: [id number] Admission: 12/09/18 ������������������ Attend Phys: Alexy Rob MD Discharge: ������������������ Date of : 54 Report #: [id number] Thank you for the consultation. ��������������������������������������������� <ELECTRONICALLY SIGNED> ���������������������������������������� By: Tobin Shea MD ��������������������������������������������� 12/09/18 1839 1205 1403 Tobin Shea MD /nt
[2018-12-09 19:20] LABS: BE(vivo) -4.7 mmol/L (-2 to +3); HCO3 20.1 mmol/L (22.0-26.0); PCO2 36.6 mmHg (35.0-45.0); PO2 379.3 mmHg (80.0-100.0); pH 7.358 (7.360-7.450); sO2 99.8 % (92.0-98.0)
[2018-12-10] VITALS (39 sets, daily range): BP systolic 89–172; BP diastolic 57–103
[2018-12-10 06:04] LABS: BE(vivo) -2.7 mmol/L (-2 to +3); PCO2 38.1 mmHg (35.0-45.0); PO2 134.1 mmHg (80.0-100.0); pH 7.379 (7.360-7.450); sO2 98.6 % (92.0-98.0)
[2018-12-10 06:04] LABS: HEMATOCRIT 37.8 % (37.0-47.0); MCH 33.4 pg (26.0-34.0); MCV 98.3 fL (80.0-100.0); RBC 3.85 mil/uL (4.20-5.00); RDW 14.1 % (10.5-14.5); WBC 9.1 thou/uL (4.0-11.0)
[2018-12-10 06:08] LABS: HEMOGLOBIN 12.9 gm/dL (12.0-15.0)
[2018-12-10 06:15] LABS: CALCIUM 8.5 mg/dL (8.5-10.1); CREATININE 0.8 mg/dL (0.6-1.0); POTASSIUM 3.1 mmol/L (3.5-5.1)
--- NOTE | 2018-12-10 06:43 | NUR ---
PT REMAINS ON VENT FIO2 40% SATS 100% PT ST ON MONITOR. PT CONTINUES ON PROPOFOL SEDATION. PT WITH MAINTENANCE IVF. PT TO GET POTASSIUM REPLACEMENT THIS MORNING. PT MINIMALLY RESPONSIVE. RR REMAINS 20-30s. AM LABS REVIEWED.
--- NOTE | 2018-12-10 14:54 | NUR ---
ASSUMED CARE OF PT AT 1000 THIS SHIFT. PT HAS BEEN INTUBATED AND SEDATED THIS SHIFT. PT WAS SEEN BY PROVIDERS, CURRENTLY RESTING COMFORTABLY IN ROOM. PT'S FAMILY CALLED, CONFIRMING PT IS DNR STATUS, PHYSICIANS ARE AWARE. PT HAS NOT HAD VISITIORS THIS SHIFT, EDUCATION WAS PROVIDED. PLAN OF CARE IS TO CONTINUE TO MONITOR CLOSELY AT THIS TIME.
[2018-12-11] VITALS (48 sets, daily range): BP systolic 105–178; BP diastolic 62–95
[2018-12-11 04:58] LABS: BE(vivo) -2.1 mmol/L (-2 to +3); HCO3 22.6 mmol/L (22.0-26.0); PCO2 38.5 mmHg (35.0-45.0); PO2 129.2 mmHg (80.0-100.0); pH 7.386 (7.360-7.450); sO2 98.6 % (92.0-98.0)
[2018-12-11 06:05] LABS: HEMATOCRIT 33.2 % (37.0-47.0); HEMOGLOBIN 11.4 gm/dL (12.0-15.0); MCH 33.8 pg (26.0-34.0); MCHC 34.4 g/dL (28.0-37.0); MCV 98.3 fL (80.0-100.0); RBC 3.38 mil/uL (4.20-5.00); RDW 14.2 % (10.5-14.5); WBC 8.6 thou/uL (4.0-11.0)
[2018-12-11 06:13] LABS: CALCIUM 8.7 mg/dL (8.5-10.1); CREATININE 0.6 mg/dL (0.6-1.0); POTASSIUM 3.3 mmol/L (3.5-5.1)
--- NOTE | 2018-12-11 07:00 | NUR ---
PT INTUBATED AND ON VENT, SEDATED WITH PROPOFOL GTT. PT OPENS EYES TO NAME AND FOLLOWS SIMPLE COMMANDS, WITH SEDATION. NO SIGNIFICANT CHANGES OVERNIGHT. POTASSIUM LOW THIS MORNING, ORDERS TO REPLACE OBTAINED. WILL CONTINUE TO MONITOR.
--- NOTE | 2018-12-11 11:46 | NUR ---
Nutrition: Pt npo x 2 days on vent. REC jevity 1.5 at 35 mL/hr with current propofol rate.
[2018-12-11 15:38] LABS: BE(vivo) -1.5 mmol/L (-2 to +3); HCO3 22.4 mmol/L (22.0-26.0); PCO2 35.3 mmHg (35.0-45.0); PO2 145.2 mmHg (80.0-100.0); pH 7.421 (7.360-7.450); sO2 98.9 % (92.0-98.0)
--- NOTE | 2018-12-11 16:36 | NUR ---
PT IS ALERT AND ORIENTED. WITH SOME CONFUSION NOTED. LUNGS ARE CLEAR TO DIMINISHED. COUGHS UP MODERATE CLEAR SECREATIONS. BHAKTA TO DD WITH LIGHT YELLOW URINE PRESENT. ON FACE SHIELD 15 PERCENT. OXYGEN SATURATION IS 100 PERCENT[address] REPLACE POTASIUM THIS AM WITH RESULTS IN WNL RANGE AFTER REPLACEMENT. ABDOMEN IS SOFT AND FLAT. CALL LIGHT WITHIN REACH IF NEEDS ASSISTANCE. AND BED ALARM ON PT AT THIS TIME.
[2018-12-12] VITALS (25 sets, daily range): BP systolic 160–199; BP diastolic 71–107
[2018-12-12 05:48] LABS: HEMATOCRIT 32.6 % (37.0-47.0); HEMOGLOBIN 11.4 gm/dL (12.0-15.0); MCH 34.2 pg (26.0-34.0); MCHC 34.8 g/dL (28.0-37.0); MCV 98.5 fL (80.0-100.0); RBC 3.32 mil/uL (4.20-5.00); RDW 14.2 % (10.5-14.5); WBC 10.5 thou/uL (4.0-11.0)
[2018-12-12 06:19] LABS: CALCIUM 8.5 mg/dL (8.5-10.1); CREATININE 0.6 mg/dL (0.6-1.0); POTASSIUM 3.8 mmol/L (3.5-5.1)
--- NOTE | 2018-12-12 07:07 | NUR ---
PT EXTUBATED YESTERDAY AFTERNOON. PT ON FACE SHIELD AT SHIFT CHANGE WITH O2 SAT CONSISTENTLY AT 100%. O2 REMOVED AND PT ON RA THE REMAINDER OF THE NIGHT. WITH O2 SAT >95%. PT ALERT AND ORIENTED X2, BUT SOMEWHAT CONFUSED/FORGETFUL AND HAS BEEN HAVING VISUAL/AUDITORY HALLUCINATIONS. PT IS CONSTANTLY TALKING TO HERSELF OR HAVING A CONVERSATION WITH THE PEOPLE SHE SEES IN THE ROOM. PT'S BP ELEVATED SINCE EXTUBATION. Loretta MONROY CHARGE POSTER CALLED, ONETIME ORDER OF METOPROLOL ORDERED. METOPROLOL BROUGHT HR DOWN TO 80s, BUT HAD NO EFFECT ON BP. CHARGE POSTER CALLED AGAIN AROUND [place] ABOUT ELEVATED PRESSURE AND MENTAL STATUS. METOPROLOL Q6H SCHEDULED ORDERED, DOSE THIS AM HAS HAD NO EFFECT ON BP YET. MENTAL STATUS ADDRESSED WITH CHARGE POSTER, PT HAD NOT SLEPT AT ALL AND WAS SOMEWHAT AGITATED AND HAVING HALLUCINATIONS. HALDOL IM ORDERED X1; MEDICATION HAD NO EFFECT ON PT. PT DID NOT SLEEP OVERNIGHT. WILL CONTINUE TO MONITOR.
--- NOTE | 2018-12-12 11:20 | NUR ---
WOUND CARE FOLLOW UP; ROUNDING TODAY WITH MAGALY PATIENT TRANSPORT ORDERLY AND SARAH BUILDING DRAFTING OFFICER. THE PATIENT IS AWAKE AND SPEAKING FLIGHTS OF IDEAS TODAY. THE LEFT HAND IS IMPROVING. RECOMMENDATION; CONTINUE JOSEFA VAIL AND A BOARDERED YONATAN RN PRESENT
--- NOTE | 2018-12-12 14:01 | EKG ---
[address] [address] ELECTROCARDIOGRAM REPORT Name: VINITA WARD Room #: 246-P [facility] IN .R.#: [id number] ������������������ Admission: 12/09/18 ������������������ Attend Phys: Alexy Rob MD Discharge: ������������������ Date of : 54 Report #: [id number] ����������������������������������������������������������������� [id number] THIS REPORT FOR: //name// [facility] Test Date: 2018-12-12 Test Time: 13:11:10 Pat Name: VINITA WARD Department: Room: 246 P Gender: F Mail Handler Sorter: Austen FIGUEROA : 1950 Requested By: Gibson Kelly Order Number: [id number] MD: José Miguel Moran Measurements Intervals [place] Rate: 83 P: 81 FL: 123 QRS: 56 QRSD: 84 T: 65 QT: 425 QTc: 500 Interpretive Statements Sinus rhythm Right atrial enlargement Compared to ECG 12/06/2018 08:40:27 Atrial abnormality now present Sinus tachycardia no longer present ST (T wave) deviation no longer present Electronically Signed On 12-12-2018 14:00:57 CDT by José Miguel Moran [email or web address] ��������������������������������������������� <ELECTRONICALLY SIGNED> ���������������������������������������� By: José Miguel Moran MD ��������������������������������������������� 12/12/18 1400 1311 1311 José Miguel Moran MD /EPI
--- NOTE | 2018-12-12 16:26 | NUR ---
patient admitted from ER post fall at home to [facility]. She then transferred to acute care from [facility]. Her home is not in condition in which plan is to return to home. Sp with brother who is unsure if plan return to [facility] or looking at placement. Patient speaks continuously nonsensicle. She can answer a direct question then cont with talking consistantly.
--- NOTE | 2018-12-12 18:30 | NUR ---
PT IS RAMBLES ON AND ON WITH SPEECH CONTINUES NONSTOP. PSYCH SEEN PT TODAY. HALIDOL GIVEN WITH NO EFFECT ON PT AT ALL. PLAYED RELAXING MUSIC FOR PT. LUNGS ARE CLEAR TO DIMINISHED. ON ROOM AIR. VITALS STABLE. BHAKTA TO DD. WITH YELLOW URINE PRESENT. FAMILY AT BEDSIDE TODAY. DR. ANGEL CAME TO ADRESS FAMILY ISSUES AND CONCERNS AT THIS TIME. WILL CONTINUE ONGOING NURSING CARE AT THIS TIME. INTERACTIVE GRAPHIC DESIGNER SEEN PT TODAY.
[2018-12-13] VITALS (19 sets, daily range): BP systolic 140–197; BP diastolic 75–109
--- NOTE | 2018-12-13 03:46 | NUR ---
RECEIVED PT'S CARE AT 1900; PT. ON BED; ALER TO PERSON; TALKING TO HERSELF; WORD SALAD; NOT ABLE TO ANSWER QUESTIONS; REPEAT BACK QUESTIONS ASKED; NO APPARENT PAIN; SBP ELEVATED; SUPERVISOR PACKING ROOM NOTIFIED; ORDER RECEIVED; BED BAD GIVEN; PT. REMAINED TALKING TO HERSELF; RESTLESS; FACE FLUSHED; MIDNIGHT BP GIVEN; NO ABLE TO STOP TALKING; SUPERVISOR PACKING ROOM NOTIFIED; ORDERS RECEIVED; AFTER 0200 PT. RESTING WITH EYES CLOSED; MONITORING; TURNED Q2H; ASSESSMENT CHARGED; FOLLOWING POC; WILL PASS ON REPORT.
[2018-12-13 11:37] LABS: HEMATOCRIT 39.6 % (37.0-47.0); MCH 33.2 pg (26.0-34.0); MCHC 34.3 g/dL (28.0-37.0); MCV 96.8 fL (80.0-100.0); PLATELET COUNT 294 thou/uL (150-400); RDW 14.1 % (10.5-14.5); WBC 11.9 thou/uL (4.0-11.0)
[2018-12-13 11:39] LABS: HEMOGLOBIN 13.6 gm/dL (12.0-15.0)
[2018-12-13 11:42] LABS: CALCIUM 8.7 mg/dL (8.5-10.1); CREATININE 0.8 mg/dL (0.6-1.0); POTASSIUM 3.6 mmol/L (3.5-5.1)
--- NOTE | 2018-12-13 11:58 | NUR ---
WOUND CARE FOLLOW UP; ROUNDING WITH MAGALY POLL CLERK AND SARAH GLOBAL CHIEF EXPERIENCE OFFICER. THE LEFT HAND WOUND IS STABLE TODAY AND MANAGED WELL WITH AQUACEL AG, AND A SMALL BOARDERED FOAM. THE PATIENT IS ALERT BUT NOT ORIENTED. RECOMMENDATIONS; NO CHANGES DISCUSSED WITH RN
[2018-12-13 12:42] LABS: ABSOLUTE NEUTROPHILS 9.8 thou/uL (1.4-8.2); ANISOCYTOSIS SLIGHT; METAMYELOCYTES 2 %; MYELOCYTES 1 %
--- NOTE | 2018-12-13 14:14 | NUR ---
CALL TO VIA PAGER FOR HTN.--VW
--- NOTE | 2018-12-13 23:00 | NUR ---
Pt with stable VS, no complaints and resting comfortably in bed. Report called to next RN and pt awaiting transfer to room 357. Continue with POC.
--- NOTE | 2018-12-13 23:31 | NUR ---
PT TRANSFERRED FROM ICU, PT CAME ON A BED. SETTLED IN THE ROOM, WATCHING TV, BED ALARM ON, MOMITORED.
--- NOTE | 2018-12-13 23:58 | HC ---
[facility] [place] [address] CONSULTATION Name: VINITA WARD Ben Room #: 357-P [facility] IN ..#: [id number] Admission: 12/09/18 ������������������ Attend Phys: Alexy Rob MD Discharge: ������������������ Date of : 54 Report #: [id number] THIS REPORT FOR: //name// CC: FAM unknown Alexy Rob DATE OF SERVICE: 12/12/2018 INPATIENT SENIOR PSYCHIATRIC CONSULTATION PRIMARY TEAM ATTENDING: Alexy Rob M.D. PULMONARY AND CRITICAL CARE CONSULTANTS: Emigdio Gillette M.D. REASON FOR CONSULTATION: The patient was emergently discharged and then admitted to the Intensive Care Unit on 12/09/2018. The patient was intubated over the weekend and was extubated late yesterday. She now has pressured speech, is disorganized, and further psychiatric management was requested by Dr. Rob. HISTORY OF PRESENT ILLNESS: This 68-year-old female known to me from roughly a 10 or so day hospitalization on the [facility] here at [facility]. The patient had developed an ill-appearing presence on 12/06/2018 when we had a family meeting and earlier on the morning on the she became quite hypoxic and required admission to the intensive care unit here at [facility]. The patient's vital signs at time of her ICU admission was a respiratory rate of 40. The patient today is lying supine with a slight elevation in her ICU bed and her jivyiu-ed-nsl and sister from [place] are present. The patient has some pressured speech, is disorganized, and pleasantly confused as described. The patient was not oriented today, she thought it was Wednesday. She did not believe that she was intubated over the weekend. The patient denied SI, HI, auditory, visual, or tactile hallucinations. Other information pertinent to her admission to the ICU is a past medical history of disability, fall from ground level, hand laceration, acute hypoxic respiratory failure, possibly due to aspiration pneumonia. 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 ALLERGIES: FISH-CONTAINING PRODUCTS. MEDICATIONS: On ICU admission were metoprolol tartrate 50 mg daily. We had had her on aripiprazole 5 mg p.o. daily. PAST MEDICAL AND SURGICAL HISTORY: Unknown. [address] [place] [address] CONSULTATION Name: VINITA WARD Room #: 357-P [facility] IN ..#: [id number] Admission: 12/09/18 ������������������ Attend Phys: Alexy Rob MD Discharge: ������������������ Date of : 54 Report #: [id number] SOCIAL HISTORY: She dated men briefly. No children. No marriage. She has used tobacco in the past, and reported using LSD once. FAMILY HISTORY: Cancer. REVIEW OF SYSTEMS: Unable to complete a review of systems due to her current delirious state. LABORATORY AND DIAGNOSTIC DATA: Current laboratories from the ICU today 12/12/2018, H and H of 10.4 and 32.6, that is stable. White count 10.5, platelet count 229. Blood gas from yesterday was good: PH 7.421, pCO2 35.3, pO2 145.2, bicarb 22.4. Chemistries on the : Sodium 141, potassium 3.9, chloride 105, bicarb 25, anion gap 11, BUN 12, creatinine 0.6, estimated GFR 100, glucose 104, calcium 8.5. The patient's neuro imaging: Chest x-ray done today showed no acute process. ET tube and NG tube have been removed. The lungs are clear, apart from some minor basilar atelectasis. Mediastinal contours are normal. She did have a head CT on the at the time of her psych admission. It is notable for a significant amount of left frontal atrophy, no large stroke phenomenon that I can see. Also, her CTA was negative for thromboemboli or the left lower lobe infiltrates. CURRENT MEDICATIONS: In the ICU, she is getting metoprolol 5 mg q.6 scheduled IV push, methylprednisone 62.5 mg q.12 IV push, sodium chloride, famotidine 20 mg b.i.d. IV push, Lovenox 30 mg subcu at bedtime. She is getting Zosyn 3.375 grams q.8 hours IV piggyback and it looks like she is getting some insulin as needed. PHYSICAL EXAMINATION: MUSCULOSKELETAL: Nonambulatory in the ICU bed. Epps and IV line is hooked up. GENERAL: This is a well-developed, disheveled, but improved in appearance female female appearing at least her stated age. Attention intact. Concentration limited. Speech increased rate. Thought processes are linear and then becoming tangential. Thought content focused on some bizarre things, but able to answer questions. No psychomotor agitation or psychomotor retardation. Denied auditory, visual, or tactile hallucination. She denies suicidal intent or plan. Denied hopeless, helpless. Denied homicidal intent or plan. Memory noted to be impaired. Insight limited. Judgment limited. Fund of knowledge at least in average range. FORMULATION: A 68-year-old female less than 1 day post-extubation in the Intensive Care Unit at [facility] following acute respiratory failure, currently on the Geriatric Psychiatry Unit. ASSESSMENT: Delirium due to general medical condition, namely pneumonia, steroid effect, effect from the ICU, major neurocognitive disorder, likely due [facility] [address] [place] [address] CONSULTATION Name: SYLVIAVINITA Ben Room #: 357-P [facility] IN M.R.#: [id number] Admission: 12/09/18 ������������������ Attend Phys: Alexy Rob MD Discharge: ������������������ Date of : 54 Report #: [id number] to Alzheimer's disease, without behavioral disturbance. PLAN: Continue supportive care. I would recommend starting her on scheduled haloperidol at 0.5 mg IV q.8 hours. This can be switched to an oral regimen once she has passed her swallowing test, high doses of Haldol can be used p.r.n. Last 12-lead EKG was on 11/30/2018, so I have ordered another one to check her QTC. I spent a lot of time discussing with her cjcedh-pz-cro and sister the diagnosis, prognosis, and need for placement. Approximately 30 minutes were spent on this activity alone. A total of 60 minutes were spent on preparation of this dictation, review of records, coordination of care, and discussion with Dr. Rob. I will follow along with you at this point. The main thing I have encouraged the family to do is to look at some placement options, so when the patient does improve medically she can be placed in a long-term care facility. At the moment, I am not thinking she is going to need to return to the [facility], but obviously her physical condition as well as her behavior on the Step-Down Units will drive this, so at least 60 minutes spent on this case this morning. greater than 50% of time spent on counselign and coordination of care with ICU staff, family and co treating physicians. ��������������������������������������������� <ELECTRONICALLY SIGNED> ���������������������������������������� By: Gibson Kelly DO ��������������������������������������������� 12/13/18 2358 1326 1731 Gibson Kelly, /nt
[2018-12-14 03:48] VITALS: BP 172/107
--- NOTE | 2018-12-14 03:59 | NUR ---
PT RESTING, WATCHING TV, NON STOP TALKING, DENIES PAIN, CALM AND COOPERATIVE, TOLERATING ORAL FLUIDS, BED ALARM ON, CONTINUE ON IV ANTIBIOTICS, BHAKTA CATH PATENT, MONITORED.
--- NOTE | 2018-12-14 04:22 | NUR ---
WY=3378/107, HR 105, CALLED TO YONAS, ORDER TO GIVE AM DOSE OF NORVASC EARLY AT 0600. PT RESTING.
[2018-12-14 07:47] VITALS: BP 150/94
--- NOTE | 2018-12-14 11:22 | NUR ---
I assessed Patrizia for appropriateness for readmission to [facility]. Patrizia does not know what brought her into the hospital or how she injured her hand. She stated 'I guess it is because I have tremors.' Patrizia is tangential. I inquired as if she was ever and had children. Patrizia began to share stories of dating and then takled about her menstration. Patrizia did say that she recognizes that she cannot live at home anymore. She believes she will be able to live with her brother when she is discharged. She has poor insight, pressured speech, and is hyper-verbal. Patrizia does not meet criteria to be readmitted to [facility].
[2018-12-14 11:24] VITALS: BP 115/74
--- NOTE | 2018-12-14 11:59 | NUR ---
SW reviewed chart and spoke with nursing and attending physician. Pt was transferred to from ICU. Plan is for pt to discharge to [facility]. Awaiting final discharge orders. SHRUTHI is following to assist as needed with discharge planning.
--- NOTE | 2018-12-14 16:01 | NUR ---
Nutrition: Diet advanced to pureed. Nsg reports pt with good appetite, no nutrition concerns at this time. Wt down 4 lb from admit. No recent albumin. B-306. Solumedrol and other meds reviewed. Pt is awaiting discharge plan. Pt does not appear at significan nutriton risk at this time.
[2018-12-14 16:11] VITALS: BP 137/88
--- NOTE | 2018-12-14 16:26 | NUR ---
Spoke with Dr. Kelly who stated he spoke with patient's brother who was open to referrals for SNF to [facility] and possible residential care at [facility]. I then placed a call to the patients DPOA / Brother Jagjit at [phone] and left a voicemail to return my call. Once I have made a connection with the DPOA/Brother will work with Case Management team on sending referrals to SNF's of choice. Notified CM team.
--- NOTE | 2018-12-14 18:40 | NUR ---
Patient ALOx4 but forgetful and talks in circles at times. Picture of left hand laceration taken and dressing changed. Patient up with walker today during therapy and did very well. Patient still tolerating room air well. Patient's sister updated via phone call, questions answered. Patient stated she knows she will be leaving to some sort of jail care facility at discharge and appears to be coping well with it. Progress made toward plan of care.
[2018-12-14 19:30] VITALS: BP 141/79
[2018-12-15 04:00] VITALS: BP 140/78
[2018-12-15 04:49] LABS: CALCIUM 8.3 mg/dL (8.5-10.1); CREATININE 0.6 mg/dL (0.6-1.0); POTASSIUM 3.3 mmol/L (3.5-5.1)
[2018-12-15 04:55] LABS: HEMATOCRIT 39.8 % (37.0-47.0); HEMOGLOBIN 13.3 gm/dL (12.0-15.0); MCH 32.6 pg (26.0-34.0); MCHC 33.4 g/dL (28.0-37.0); MCV 97.4 fL (80.0-100.0); RBC 4.09 mil/uL (4.20-5.00); RDW 14.2 % (10.5-14.5); WBC 12.2 thou/uL (4.0-11.0)
--- NOTE | 2018-12-15 04:55 | NUR ---
Tolerating room air well with no respiratory distress.She slept some which pt. stated is not unusual for her since she sleeps mostly during the day. Denies any concern at this time. Making progress towards care plan goals.
[2018-12-15 07:50] VITALS: BP 166/95
[2018-12-15 11:15] VITALS: BP 122/75
[2018-12-15 15:29] VITALS: BP 111/75
--- NOTE | 2018-12-15 16:09 | NUR ---
Returned a call to Franny: Genevieve Lucia and left a voicemail at [phone]. ([phone]). Received a call back at [phone] from Genevieve, her spouse Jagjit Morris" who is DPOA and the patient's sister who is in town from [facility]. Family is looking for a facility that can first accommodate a skilled stay and then to transition in to a Director Of Early Childhood Care Medicaid placement. Discussed a variety of facilities as the DPCODY lives in [place]. As of yet they have not determined which location would work best. After our joint-discussion they themselves wished to call and then tour [facility], [facility], [facility], [facility] and [facility]. Was informed that [facility] had told family a [place] Medicaid Application has been submitted. The family plans to reach out to myself tomorrow and give a list of which facilities they would wish for referrals to be sent to. Upon getting this information; Acute Care Case Management will send the initial referrals while patient remains in acute care. Did inform the family that if the patient were to remain in-patient after tomorrow that the CEREAL MAKER and Dr. Kelly have agreed the patient will then be moved the [facility] and once there will resume their working relationship with on [facility] for discharge planning. Will await to hear from family tomorrow in order to start sending out referrals.
[2018-12-15 19:05] VITALS: BP 137/68
--- NOTE | 2018-12-15 19:57 | NUR ---
Patient transferred from [facility] status to [facility] status this afternoon. Epps removed at 1420 this afternoon. Patient also had a nonobserved bowel movement in the toilet. Patient up with therapy today. Lots of progress made toward plan of care.
--- NOTE | 2018-12-16 03:08 | NUR ---
Pt. having hallucinations at HS . Able to answer orientation questions but forgetful at times. She slept some. Ambulated to bathroom with use of gait belt and walker. Unable to void after reynolds dc'd. Bladder scanned and reads >999. WIRE WRAPPING MACHINE OPERATOR notified and order received .Straight cathed x 1 and got 1000 ml. Tolerating room air well. Dressing intact on left hand laceration. Bed alarm for safety. She slept fair during the night.Making progress towards care plan goals.
[2018-12-16 03:41] VITALS: BP 128/72
[2018-12-16 06:10] LABS: HEMATOCRIT 40.4 % (37.0-47.0); HEMOGLOBIN 13.8 gm/dL (12.0-15.0); MCH 33.5 pg (26.0-34.0); MCHC 34.1 g/dL (28.0-37.0); MCV 98.3 fL (80.0-100.0); RBC 4.11 mil/uL (4.20-5.00); RDW 14.5 % (10.5-14.5); WBC 10.6 thou/uL (4.0-11.0)
[2018-12-16 07:37] VITALS: BP 127/75
--- NOTE | 2018-12-16 10:09 | NUR ---
WOUND CARE FOLLOW UP; ROUNDING WITH DR RADHA HUERTA AND SARAH DIOP BSN. THE PATIENT IS AWAKE AND ALERT. HER SPEECH IS SOMEWHAT APPROPRIATE AND HAS FLIGHTS OF IDEAS. OTHERWISE IS VERY PLEASANT. THE LEFT HAND WOUND IS STABLE WITH AQUACEL AG. RECOMMENDATIONS; CONT POC RN PRESENT
[2018-12-16] MEDS ORDERED: AUGMENTIN 875-1 EACH PO (11:46)
[2018-12-16] MEDS ORDERED: NORVASC10 MG PO (11:46)
[2018-12-16] MEDS ORDERED: PREDNISONE 10 M10 MG PO (11:47)
[2018-12-16] MEDS ORDERED: ZYPREXA 5 MG TAB5 M1 PO (11:47)
[2018-12-16 12:13] VITALS: BP 116/93
--- NOTE | 2018-12-16 15:39 | NUR ---
care of pt assumed this am @ ~0700. pt aox4, happy, energetic and very talkative w/ staff. pt denies co pain, no n/v/d today. pt up to bthrm w/ x1 sba to min assist multiple times today. pt encouraged to increase po fluid intake as had to be str cathed this am @ ~0130, void to bthrm @ ~1000, but missed to the hat to calculate the volume, bladder nonpalpable. pt worked w/ pt and ot today. pt w/ a good appetite for food today. pt visited by her sister (Priscila) today, both anticipating a dc to the 5th floor/prakash psych later today, room assignment 527B.
== END 2018-12-16 16:35 | DRG 208 ==
LOC: ICU 06:15 → 2N 06:15 → ICU 10:23 → 3W 12-13 23:24
PROVIDERS: Internal Medicine Pulmonary Disease; ADMIT Hospitalist
PROC: 5A09357 Assistance with Respiratory Ventilation, Less than 24 Consecutive Hours, Continuous Positive Airway Pressure (ICD-10-PCS; principal; 2018-12-09)
PROC: B548ZZA Ultrasonography of Superior Vena Cava, Guidance (ICD-10-PCS; principal; 2018-12-09)
PROC: 5A1945Z Respiratory Ventilation, 24-96 Consecutive Hours (ICD-10-PCS; principal; 2018-12-09)
PROC: 02HV33Z Insertion of Infusion Device into Superior Vena Cava, Percutaneous Approach (ICD-10-PCS; principal; 2018-12-09)
PROC: 0BH17EZ Insertion of Endotracheal Airway into Trachea, Via Natural or Artificial Opening (ICD-10-PCS; principal; 2018-12-09)
DX: J96.01 Acute respiratory failure with hypoxia (principal); E43 Unspecified severe protein-calorie malnutrition; J18.9 Pneumonia, unspecified organism; E87.1 Hypo-osmolality and hyponatremia; Z68.1 Body mass index [BMI] 19.9 or less, adult; J44.1 Chronic obstructive pulmonary disease with (acute) exacerbation; J44.0 Chronic obstructive pulmonary disease with (acute) lower respiratory infection; J96.02 Acute respiratory failure with hypercapnia; F32.9 Major depressive disorder, single episode, unspecified; I25.10 Atherosclerotic heart disease of native coronary artery without angina pectoris; F41.9 Anxiety disorder, unspecified; G40.909 Epilepsy, unspecified, not intractable, without status epilepticus; G30.9 Alzheimer's disease, unspecified; F02.80 Dementia in other diseases classified elsewhere, unspecified severity, without behavioral disturbance, psychotic disturbance, mood disturbance, and anxiety; D72.829 Elevated white blood cell count, unspecified; R41.0 Disorientation, unspecified; F01.50 Vascular dementia, unspecified severity, without behavioral disturbance, psychotic disturbance, mood disturbance, and anxiety; T38.0X5A Adverse effect of glucocorticoids and synthetic analogues, initial encounter; E53.8 Deficiency of other specified B group vitamins; S61.412A Laceration without foreign body of left hand, initial encounter; Z95.5 Presence of coronary angioplasty implant and graft; I25.2 Old myocardial infarction; Z71.6 Tobacco abuse counseling; W18.39XA Other fall on same level, initial encounter; Y93.89 Activity, other specified; Y92.89 Other specified places as the place of occurrence of the external cause; Y99.8 Other external cause status; Z79.899 Other long term (current) drug therapy
CPT/HCPCS: 10078; 10080; 10203; 10879; 27000

== ENCOUNTER 2018-12-16 14:27 | Inpatient (IN) | payer OTHER ==
--- NOTE | ~2018-12-16 | D ---
[facility] [place] [address] DISCHARGE SUMMARY Name: VINITA WARD Room #: 527B-B [facility] IN M.R.#: [id number] Admission: 12/16/18 ������������������ Attend Phys: Gibson Kelly DO Discharge: 12/21/18 ������������������ Date of : 54 Report #: [id number] THIS REPORT FOR: //name// CC: Gibson Kelly [facility] unknown DATE OF SERVICE: 12/21/2018 ATTENDING PHYSICIAN: Gibson Kelly DO MEDICAL CONSULTATION: Alexy Rob MD DISCHARGE DIAGNOSES: Major neurocognitive disorder likely due to Alzheimer's disease with behavioral disturbance, improved. Medical comorbidities are as follows, status post hypercapnic and hypoxic respiratory failure requiring endotracheal intubation and possible aspiration pneumonia. She was brought back from the ICU to the medical floor on 12/16. She had a psych admission prior to that. Hypotension, Norvasc was discontinued and beta sam adjusted. Hyponatremia, resolved. Xhqvpiuv-pm-wrkqea protein-calorie malnutrition. Left hand laceration, healing. B12 deficiency being replaced. History of seizure disorder, coronary artery disease, status post right coronary artery stent, statin is advised against due to her dementia and fall risk. Tobaccoism. DISCHARGE INFORMATION: As follows: Diet, mechanically altered ground with thickened liquids and Ensure supplement with meals. Recommend PT evaluation as well as OT evaluation in the nursing facility. LABORATORY DATA: Most recent laboratories from 12/20, sodium 139, potassium 3.3, chloride 104, bicarbonate 27, BUN 8, creatinine 0.7, estimated GFR 84. White count 14 and H and H 12.7 and 37.6 and platelet count 250. REASON FOR ADMISSION: At request of Dr. Rob to monitor the patient while placement was undertaken. HOSPITAL COURSE: The patient was admitted to the Geriatric Psychiatry Unit. She tolerated this well and was not suicidal or homicidal. Final arrangements were made to place her at the [facility] in [place], [place]. DISCHARGE MEDICATIONS: As follows: Ipratropium bromide with albuterol 3 mL inhaled q. 4 p.r.n. shortness of breath, metoprolol tartrate 12.5 mg p.o. b.i.d. hold if heart rate less than 60, olanzapine 7.5 mg p.o. at bedtime for mood stabilization, cyanocobalamin 100 mcg p.o. daily. She was given a prednisone taper one more 30 mg a day, 3 days at 20 mg, 3 days at 10 mg and then stop. [address] [address] DISCHARGE SUMMARY Name: VINITA WARD Room #: 527B-B [facility] IN [facility].#: [id number] Admission: 12/16/18 ������������������ Attend Phys: Gibson Kelly, Discharge: 12/21/18 ������������������ Date of : 54 Report #: [id number] PHYSICAL EXAMINATION: VITAL SIGNS: On the day of discharge are as follows: Temperature 36.7, pulse 78, respirations 16, BP 101/56 and O2 sat 100%. MUSCULOSKELETAL: Still utilizing a walker. MENTAL STATUS EXAMINATION: This is a well-developed, frail appearing female wearing glasses. Attention limited. Concentration limited. Speech is normal rate. Thought process is linear and goal directed. Thought content focused on discharge. No psychomotor agitation. No psychomotor retardation. Denied auditory, visual or tactile hallucinations. Denied suicidal intent or plan. Denied hopelessness or helplessness. Denied homicidal intent or plan. Memory not formally tested. Memory noted to be impaired. Insight limited. Judgment limited. Fund of knowledge average at this point, but well below her baseline, I should say she is rather in high average to low superior range, but she was of over superior in intelligence and ____ at times. Prognosis for this patient is guarded. Given her neurodegenerative picture, she will require memory care and 24/ setting. She is a full code at this point. She is discharged with her DPOA for healthcare ____ financial matters enacted. Family was counseled on how to pursue guardianship through an deputy attorney general. ��������������������������������������������� ���������������������������������������� By: ��������������������������������������������� [id number] [id number] Gibson Kelly, DO /nt
[~2018-12-16 14:27] MED LIST changes: +AUGMENTIN 875-1 EACH PO; +NORVASC10 MG PO; +PREDNISONE 10 M10 MG PO; +ZYPREXA 5 MG TAB5 M1 PO
--- NOTE | 2018-12-16 18:10 | NUR ---
1635: Admitted to room 527-B via w/c from 3E, accomp by [facility] staff member. VS=96.9-80-20, 116/79, SAO2=96% bon RA, skin w/d, color pink, denies pain or discomfort. Oriented to name, place and situation. Head-to-toe admission assessment completed, skin w/o noted breakdown, Adhesive foam dsg noted to top of Lt hand, dsg D/I. Dr. Kelly notified via phone of admission for orders, Dr. Kelly notified Dr. Rob to verify ABT stop date. Orders entered. Jagjit Zuniga (DPOA) notified via phone to obtain consent for tx and admission, verbal consent given to RN's x2 via phone, consents signed and witnessed. Personal belongings with pt, inventory sheet completed, and personal belongings updated with Jagjit via phone. Dinner meal given to pt, ambulatory with walker to , feeds self, mood is cheerful, cooperative with staff.
[2018-12-16 18:23] VITALS: BP 116/79
[2018-12-16 19:34] VITALS: BP 114/61
--- NOTE | 2018-12-16 21:59 | NUR ---
Care assumed of patient at 1900: Patient alert and oriented x4. Patient pleasant and cooperative. Patient interacting well with staff and peers. Patient smiling and happy. Patient took medications whole without difficulty. Patient denies any SI/HI/AH/VH. No delusions or paranoia noted. Patient hyperverbal at times. Patient recognizes that she is talking constantly and "is working on it". Patient denies pain or discomfort. Patient states that she is looking forward to finding a safe place to discharge to.
--- NOTE | 2018-12-17 03:26 | NUR ---
ASSUMED CARE OF THE PT AT 2230 PM. THE PT APPEARED TO BE LYING IN BED RESTING QUIETLY WHEN THIS MANAGER USER INTERFACE TOOK OVER HER CARE. REMAINS ON 12 MINUTE CHECKS FOR HER SAFETY.
[2018-12-17 08:19] VITALS: BP 94/64
--- NOTE | 2018-12-17 09:39 | NUR ---
[id number]: Report rec from [facility] shift, care assumed. Ambualtory in halls and to DR, uses walker for assistance, yellow socks and yellow fall risk wrist band in place, gait steady. Feeds self, appetite good, consumed 100% of a.m. meal. Takes meds whole, one at a time w/o difficulty. Attended 899 therapy group, 100% participation. Mood is cheerful, denies SI or hallucinations, pt is hyerverbal at times, oriented to name, place and situation.
[2018-12-17 19:45] VITALS: BP 151/71
[2018-12-18 03:50] VITALS: BP 151/71
--- NOTE | 2018-12-18 05:09 | NUR ---
PATIENT PLEASANT AND HYPERVERBAL EARLY IN THE EVENING. STATES SHE FEELS SHE IS LONELY AND THINKS IT IS NICE TO HAVE PEOPLE TO TALK TOO. PATIENT TOOK MEDS WITHOUT PROBLEMS. PATIENT HAS SLEPT THRU THE NIGHT SO FAR WITHOUT INCIDENT. NO COMPLAINTS OF PAIN. CONTINUING TO MONITOR.
--- NOTE | 2018-12-18 09:27 | NUR ---
[id number]: Report rec from [facility] shift, care assumed. Pt ambulatory using walker to DR, gait steady, yellow non-skid socks on. Pleasant mood, cooperative with staff, feeds self, appetite good, consumed 100% of a.m. meal. Takes meds whole w/o swallowing difficulty. Attending 899 therapy group, pt hyperverbal, 100% participation in group.
--- NOTE | 2018-12-18 15:52 | NUR ---
SW sent referral packages after speaking with pt's brother, sister and ELAINE. They requested these be sent to [facility] [phone], this is their 1rst choice, [facility] [phone], [facility] [phone] (f) [phone], and [facility] [phone]) [phone]. This family came to the unit and stated that this pt's dogs have been removed from the home and it wsa a terrible case of hoarding. Sw educated them on the Medicaid process and encouraged them to find the supporitng documentation needed to complete this process. SW added the DPOA paperwork to the chart, and provided the family guidance and encourgement regarding placement of this pt in a [place] [facility] [place] facility. SW reinforced that this was a decision that could not be delayed. They seemed to understand and appreciate the support. SHRUTHI had called in the AM to follow up on her ICU case management and family came in later to meet.
[2018-12-18 19:20] VITALS: BP 124/85
[2018-12-18 20:56] VITALS: BP 124/85
--- NOTE | 2018-12-19 00:40 | NUR ---
Care assumed of patient at 1900: Patient sitting in day room with other peers. Dressing changed to top of left hand 12/18/18. Patient remains on Augmentin for the dx of pneumonia. Patient pleasant and cooperative. Alert and oriented x4. Denies SI/HI/AH/VH. Patient hopeful about discharge and thankful for her brother and sister in law. Patient reports that she is wanting to be able to put on her socks all by herself and that is something they are working on in therapy. Patient ate 100% snack. Patient took medications whole without difficulty. Patient able to retire to bed and has been resting quietly.
[2018-12-19 08:24] VITALS: BP 96/54
--- NOTE | 2018-12-19 09:56 | NUR ---
ASSUMED CARE AT 0700. PATIENT IS ALERT AND ORIENTED X4, AND AT TIMES FORGETFUL. PATIENT IS PLEASANT AND COOPERATIVE. PATIENT BRANDT'S, TUGGER OPERATOR ARE EQUAL. PATIENT REMAINS ON PT/OT/ST. ST. HERE FOR BREAKFAST WITH PATIENT. PATIENT TOOK MEDS WITH MILK, BUT WITH PUDDING FOR THE ABT THAT WAS BROKE IN HALF. PATIENT TOLERATED HER MEAL WITHOUT DIFFICULTY. PATIENT IS UP WITH WALKER IN [place] INDEPENDENTLY. LUNGS ARE CLEAR AND DEMINISHED. NO 02. LEFT HAND HAS ST COVERED WITH OPTIFOAM. PATIENT HAS BRUSING ON ARMS. PATIENT IS HYPERVERBAL ABOUT EVERYTHING. PATIENT ABD IS SOFT WITH BSX4. PATIENT STATES "SHE IS VOIDING WITHOUT PROBLEMS. UP IN THE DINING ROOM FOR MEALS. PATIENT PARTICIPATING IN GROUP. WILL CONTINUE TO MONITER.
[2018-12-19 10:19] VITALS: BP 121/84
[2018-12-19 22:12] VITALS: BP 113/62
--- NOTE | 2018-12-19 22:46 | NUR ---
NURSES NOTES - ASSUMED CARE OF PATIENT AT 1900. UPON ARRIVAL TO THE UNIT SHE IS INTERACTING WITH OTHER PEERS APPROPRIATELY. 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 SHE APPEARS WITH A BRIGHT AFFECT, NEAT APPEARANCE. SHE REPORTS TO THIS NURSE 'I AM SO GLAD THAT I AM HERE AND I KNOW I NEED TO BE HERE TO LEARN HOW TO LIVE ON MY OWN AND BE GOOD AT THAT AND TAKE CARE OF MYSELF.' SHE DOES RAMBLE AT TIMES WHEN TALKING WITH PATIENT, BUT IS APPRECIATIVE. SHE DENIES SI HI AND HALLUCINATIONS AT THIS TIME. SHE DENIES FEELINGS OF DEPRESSION ET ANXIETY. SHE DOES HAVE SEVERAL BRUISES ON RIGHT AND LEFT ARMS FROM VENIPUNCTURE. SHE DENIES OTHER HEALTH CONCERNS WITH NO S/S OF DISTRESS. NURSING WILL MAINTAIN ALL PRECAUTIONS TO ENSURE SAFETY AT ALL TIMES.
[2018-12-20 02:21] VITALS: BP 113/62
[2018-12-20 05:57] LABS: ABSOLUTE NEUTROPHILS 9.9 thou/uL (1.4-8.2); BASOPHILS 0.2 % (0.0-2.0); HEMATOCRIT 37.6 % (37.0-47.0); HEMOGLOBIN 12.7 gm/dL (12.0-15.0); LYMPHOCYTES 19.9 % (24.0-44.0); MCH 33.2 pg (26.0-34.0); MCHC 33.8 g/dL (28.0-37.0); MCV 98.3 fL (80.0-100.0); MONOCYTES 9.2 % (1.0-8.0); PLATELET COUNT 250 thou/uL (150-400); POLYS 70.7 % (36.0-66.0); RBC 3.83 mil/uL (4.20-5.00); RDW 14.6 % (10.5-14.5)
[2018-12-20 06:07] LABS: CALCIUM 8.6 mg/dL (8.5-10.1); CREATININE 0.7 mg/dL (0.6-1.0); MAGNESIUM 2.3 mg/dL (1.8-2.4); POTASSIUM 3.3 mmol/L (3.5-5.1)
[2018-12-20 08:46] VITALS: BP 97/74
[2018-12-20 08:50] VITALS: BP 97/74
--- NOTE | 2018-12-20 17:01 | NUR ---
SHRUTHI spoke with Gisselle from [facility] concerning pt neing accepted into rehab. [place]. gisselle mention that pt will be d/c on December 21, 2018. Pt will be roll picker by [facility]. SHRUTHI will follow-up with pt upon d/c.
--- NOTE | 2018-12-20 18:27 | NUR ---
ASSUMED CARE OF PT AT 0715. PT IS A&OX4 WITH PERIODS OF FORGETFULLNESS, VITAL SIGNS ARE STABLE WITH PERIODS OF TACHYCARDIA WHEN PT STATES THAT SHE FEEL ANXIOUS. PT TAKES MEDICATIONS WHOLE OR CUT IN HALF WITH THIN LIQUIDS. PT AMBULATES AND TRANSFERS INDEPENDENTLY WITH WALKER. PT REPORTS NO PAIN AND PARTICIPATED IN GROUP. PT EATING IN DINING ROOM FOR MEALS. +1 PITTING EDEMA IN BILATERALL LOWER EXTREMITIES. FALL AND SAFETY PRECAUTIONS IN PLACE AND NURSING WILL CONTINUE TO MONITOR.
[2018-12-20 19:59] VITALS: BP 143/74
--- NOTE | 2018-12-20 22:51 | NUR ---
NURSES NOTES - ASSUMED CARE AT 1900. PATIENT IN DAY ROOM INTERACTING WITH PEERS APPROPRIATELY. PT APPEARS WITH A BRIGHT AFFECT, UPON ONE TO ONE SHE DISCUSSED HER SATISFACTION WITH DISCHARGE AND CARE GIVEN AT [facility]. SHE SEEMED GOAL DIRECTED, THOUGHTS WERE LINEAR. SHE CONTINUES TO EXPLAIN HER THOUGHTS AT LENGTH AND IS HYPERVERBAL AT TIMES. SHE DENIES SI HI AND HALLUCINATIONS. SHE APPEARS WITH A NEAT GROOMED APPEARANCE. SHE DENIES FEELINGS OF DEPRESSION ET ANXIETY. SHE DENIED MEDICAL CONCERNS, AGAIN DISCUSSED AREAS OF BRUISING ET TRANSFER OF CARE TO NEW FACILITY. WILL CONTINUE TO MAINTAIN ALL PRECAUTIONS TO ENSURE SAFETY AT ALL TIMES.
[2018-12-21 08:00] VITALS: BP 101/56; BP 143/74
--- NOTE | 2018-12-21 10:04 | NUR ---
ASSUMED PT CARE AT 0700 PT IS AOX4. NO COMPLAINT PT IS EXCITED ABOUT DISCHARGE TODAY. PT TOLORATES AM MEDICINE WELL. PICTURE OF LEFT HAND WOUND TAKEN AND PLACED IN CHART. PT PARTICIPATED IN GROUP AND IS WAITING TO SEE DR AND FINAL DISCHARGE SUMMARY. PT AMBULATES WELL WITHOUT HELP. VSS. BP IS SOFT, BUT HEART RATE NORMAL. METROPOLOL GIVEN. WILL RECHECK BP BEFORE DISCAHRGING PT. WILL CONTINUE TO MONITOR PT.
[2018-12-21] MEDS ORDERED: VITAMIN B-12500 MCG PO (12:33)
[2018-12-21] MEDS ORDERED: IPRAT-ALBUT 0.5-3 ML INH (12:33)
[2018-12-21] MEDS ORDERED: LOPRESSOR25 PO (12:33)
[2018-12-21] MEDS ORDERED: ZYPREXA 5 MG TAB5 M1 PO (12:33)
[2018-12-21] MEDS ORDERED: PREDNISONE 10 M10 MG PO (12:35)
--- NOTE | 2018-12-21 14:04 | NUR ---
PT LEFT FLOOR AT 1400 ACCOMPANIED BY TRANSPORTER ON WHEELCHAIR. BELONGINGS BROUGHT ALONG.
--- NOTE | 2018-12-21 14:16 | NUR ---
Patient Name: VINITA WARD Admission Date: 12/16/18 DISCHARGE PLAN: Pt will be d/c to [facility]. Care Assessment: Pt was assessed by Dr. Kelly, and diagnoed with Major Neurocognitive Disorder. Level II Assessment: None Transportation: Pt will be transported by [facility] Special Instructions/Notes: Pt will need rehab. and memory care unit. DISCHARGE TO FACILITY: Rehab. and Memory Care unit Facility: [facility] Fax: Address: [address] [place] [id number] Contact Name: Nimo Phone: PCP: DAVID Psychiatrist: BRUNO Psychiatrist
== END 2018-12-21 14:06 | DRG 56 ==
LOC: SBH
PROVIDERS: Nurse Practitioner; ADMIT Psychiatry & Neurology Psychiatry
DX: G30.9 Alzheimer's disease, unspecified (principal); J69.0 Pneumonitis due to inhalation of food and vomit; E43 Unspecified severe protein-calorie malnutrition; J96.01 Acute respiratory failure with hypoxia; J96.02 Acute respiratory failure with hypercapnia; F02.81 Dementia in other diseases classified elsewhere, unspecified severity, with behavioral disturbance; E87.1 Hypo-osmolality and hyponatremia; I95.9 Hypotension, unspecified; E53.8 Deficiency of other specified B group vitamins; G40.909 Epilepsy, unspecified, not intractable, without status epilepticus; I10 Essential (primary) hypertension; F17.210 Nicotine dependence, cigarettes, uncomplicated; I25.10 Atherosclerotic heart disease of native coronary artery without angina pectoris; Z95.5 Presence of coronary angioplasty implant and graft; Z71.6 Tobacco abuse counseling; Z79.899 Other long term (current) drug therapy
CPT/HCPCS: 10880

== ENCOUNTER 2019-10-04 17:24 | Inpatient (IN) | payer OTHER ==
[~2019-10-04] VITALS: Ht 157.5 cm; Wt 60.3 kg
[~2019-10-04 17:24] MED LIST changes: +IPRAT-ALBUT 0.5-3 ML INH; +LOPRESSOR25 PO; +VITAMIN B-12500 MCG PO
[2019-10-04] MEDS ORDERED: SPIRIVA18 MCG INH (17:37)
[2019-10-04] MEDS ORDERED: PROAIR HFA8.5 GM INH (17:37)
[2019-10-04] MEDS ORDERED: TRAZODONE 150150 M1 PO (17:37)
[2019-10-04] MEDS ORDERED: CELEXA 10 MG TA10 M1 PO (17:37)
[2019-10-04 17:40] LABS: ABSOLUTE NEUTROPHILS 9.4 thou/uL (1.4-8.2); BASOPHILS 0.3 % (0.0-2.0); EOSINOPHILS 0.1 % (0.0-3.0); HEMATOCRIT 34.3 % (37.0-47.0); HEMOGLOBIN 11.7 gm/dL (12.0-15.0); LYMPHOCYTES 9.7 % (24.0-44.0); MCH 31.5 pg (26.0-34.0); MCHC 34.2 g/dL (28.0-37.0); MONOCYTES 8.8 % (1.0-8.0); PLATELET COUNT 267 thou/uL (150-400); POLYS 81.1 % (36.0-66.0); RBC 3.73 mil/uL (4.20-5.00); RDW 14.6 % (10.5-14.5); WBC 11.6 thou/uL (4.0-11.0)
[2019-10-04 17:49] LABS: CALCIUM 8.9 mg/dL (8.5-10.1); POTASSIUM 3.6 mmol/L (3.5-5.1)
[2019-10-04 18:58] VITALS: BP 200/111
[2019-10-04 19:47] VITALS: BP 166/98
[2019-10-04 21:27] VITALS: BP 189/81
[2019-10-04 23:39] VITALS: BP 165/88
[2019-10-05 04:37] VITALS: BP 129/63
[2019-10-05 07:45] VITALS: BP 119/68
[2019-10-05 09:22] LABS: PROTIME 10.1 Seconds (9.3-11.4)
--- NOTE | 2019-10-05 09:57 | EKG ---
[facility] [place] [address] ELECTROCARDIOGRAM REPORT Name: VINITA WARD Room #: 438-P ADM IN M.R.#: [id number] Admission: 10/04/19 Attend Phys: Bonnie Benites MD Discharge: Date of : 54 Report #: [id number] THIS REPORT FOR: cc: Jagjit Rizo James A. DO Lundgren, Craig H. MD [facility] ~ THIS REPORT FOR: //name// [facility] ED Test Date: 2019-10-04 Test Time: 18:09:56 Pat Name: VINITA WARD Department: Room: [facility] Gender: F Translator: NING : 1950 Requested By: Anay Richardson Order Number: [id number] MD: Timmy Galdamez Measurements Intervals Triangle Rate: 95 P: 69 VA: 191 QRS: 22 QRSD: 92 T: 85 QT: 396 QTc: 498 Interpretive Statements Sinus rhythm Biatrial enlargement Minimal ST depression, lateral leads Borderline prolonged QT interval Compared to ECG 12/12/2018 13:11:10 ST (T wave) deviation now present Electronically Signed On 10-05-2019 9:56:13 CDT by Timmy Galdamez [email or web address] <ELECTRONICALLY SIGNED> By: Timmy Galdamez MD, FAC 10/05/19 0956 180 1809 Timmy Galdamez MD, FAC /EPI
--- NOTE | 2019-10-05 10:11 | HC ---
[facility] [place] [address] CONSULTATION Name: VINITA WARD Ben Room #: 438-P ADM IN M.R.#: [id number] Admission: 10/04/19 Attend Phys: Bonnie Benites MD Discharge: Date of : 54 Report #: [id number] THIS REPORT FOR: cc: Jagjit Rizo James A. DO Clymer, David J. MD ~ CC: Bonnie Rizo DATE OF SERVICE: 10/05/2019 CHIEF COMPLAINT: Left femur fracture. HISTORY OF PRESENT ILLNESS: This 69-year-old female states that she is generally healthy and functional. She lives independently and has no significant previous problems with ambulation or previous injury. Yesterday when getting out of bed, she fell awkwardly injuring the left hip and thigh region. She was unable to stand. She rested for a period of time and then called 911 and was brought to [facility]. Here, x-rays confirmed a displaced unstable subtrochanteric fracture in the left femur. No other injuries were identified. At the time of my evaluation today, she is alert and oriented. She notes that she has no other areas of significant discomfort. The left hip and thigh are uncomfortable at rest and markedly uncomfortable with any attempted movement. She seems to have no injuries involving the neck, back, upper extremities or right lower extremity. The left leg is shortened and rotated consistent with an unstable displaced proximal femur fracture. Distal neurologic and vascular status appeared to be normal. X-ray review confirmed a mildly comminuted displaced and unstable fracture in the subtrochanteric region of the left femur. The femoral neck and head appeared to be well positioned and stable without evidence of fracture. The mid femur appears to be normal. IMPRESSION: I have discussed this at length with the patient, reviewing treatment options. I think surgical repair using a long TFN antegrade nail would be most appropriate. Pending OR scheduling, we may be able to proceed with surgery today. The patient is stable and agrees that she would like to proceed with surgery whenever scheduling will allow. <ELECTRONICALLY SIGNED> By: René Lind MD 10/05/19 [id number] René Lind MD /nt
[2019-10-05 10:15] LABS: HEMATOCRIT 28.2 % (37.0-47.0); HEMOGLOBIN 9.6 gm/dL (12.0-15.0); MCH 31.9 pg (26.0-34.0); MCV 93.6 fL (80.0-100.0); RBC 3.01 mil/uL (4.20-5.00); RDW 14.2 % (10.5-14.5); WBC 5.2 thou/uL (4.0-11.0)
[2019-10-05 15:45] VITALS: BP 110/55
[2019-10-05 19:19] VITALS: BP 147/65
[2019-10-06 04:06] VITALS: BP 111/88
[2019-10-06 05:25] LABS: MCH 31.8 pg (26.0-34.0); MCHC 33.4 g/dL (28.0-37.0); MCV 95.3 fL (80.0-100.0); RBC 2.51 mil/uL (4.20-5.00); RDW 14.7 % (10.5-14.5); WBC 6.4 thou/uL (4.0-11.0)
[2019-10-06 07:14] VITALS: BP 100/61
--- NOTE | 2019-10-06 10:29 | O ---
[facility] [place] [address] OPERATIVE REPORT Name: VINITA WARD Room #: 438-P ADM IN M.R.#: [id number] Admission: 10/04/19 Attend Phys: Bonnie Benites MD Discharge: Date of : 54 Report #: [id number] THIS REPORT FOR: cc: Jagjit Rizo,René Carnes MD ~ CC: Bonnie Rizo PREOPERATIVE DIAGNOSIS: Fracture, left femur, subtrochanteric level. POSTOPERATIVE DIAGNOSIS: Fracture, left femur, subtrochanteric level. PROCEDURE: Reduction and fixation, left femur fracture, using antegrade long TFN nail fixation. SURGEON: René Lind M.D. INDICATIONS: This 69-year-old female fell at home injuring the left femur. She had no other injuries. X-rays confirm a mildly comminuted displaced and unstable subtrochanteric fracture of the left femur. No other injuries were identified. She does have a number of other moderate medical and psychiatric problems, but appears generally healthy and stable and is living independently. We have discussed treatment options and elected to go ahead with surgical repair. DESCRIPTION OF PROCEDURE: The patient was taken to the operating room where she was placed under general anesthesia. Prophylactic intravenous antibiotics were administered. She was positioned on the fracture table with gentle longitudinal traction and the C-arm was utilized to visualize the left femur. The lateral aspect of the hip, thigh and knee were meticulously prepped and draped. Skin incision was made just proximal to the greater trochanter and a guidewire passed through the trochanter and down the canal. The fracture was realigned with gentle manipulation and gentle traction. The canal was opened with cannulated reamers, gradually advancing to a 12 mm diameter reamer. The femur was measured and a 380 mm length IM gregorio seemed to fit most appropriately. The Synthes TFN nail system was utilized. A 380 mm length x 10 mm diameter TFN nail was selected. This was impacted down the canal. It seemed to align the fracture quite nicely, although there was some comminution and slight irregularity at the fracture site. It was advanced to an appropriate position, a lateral guidewire was placed through the femoral neck and head and then a helical blade inserted using an 85 mm length helical blade, which brought this to about 1 cm below the subchondral bone at the femoral head. Excellent purchase was established. The proximal locking nut was tightened down. Fracture alignment was inspected and traction was decreased and gentle impaction performed. There is still slight separation at the lateral side, but the medial cortex appears to be abutted nicely. A distal interlocked screw was then placed in the dynamic hole using [facility] [address] [place] [address] OPERATIVE REPORT Name: VINITA WARD Room #: 438-P [facility] IN M.R.#: [id number] Admission: 10/04/19 Attend Phys: Bonnie Benites MD Discharge: Date of : 54 Report #: [id number] C-arm guidance. I felt 1 screw was sufficient and wished to continue with dynamic fixation, so that further fracture compression could occur as the patient begins to ambulate and bear weight. C-arm views revealed satisfactory position of the fixation and the fracture seems to be in acceptable alignment. The 3 small wounds were then copiously irrigated and closed with 2-0 Monocryl and skin sandra. A sterile dressing was applied. The patient was awakened and returned to recovery room in good condition. <ELECTRONICALLY SIGNED> By: René Lind MD 10/06/19 1029 1103 1139 René Lind MD /nt
[2019-10-06 15:27] VITALS: BP 118/76
[2019-10-06 19:59] VITALS: BP 144/52
[2019-10-06 21:24] LABS: HEMOGLOBIN 7.7 gm/dL (12.0-15.0)
[2019-10-07 04:31] VITALS: BP 123/58
[2019-10-07 06:12] LABS: ABSOLUTE NEUTROPHILS 3.7 thou/uL (1.4-8.2); BASOPHILS 0.7 % (0.0-2.0); EOSINOPHILS 2.1 % (0.0-3.0); HEMATOCRIT 22.8 % (37.0-47.0); HEMOGLOBIN 7.7 gm/dL (12.0-15.0); MCH 31.8 pg (26.0-34.0); MCHC 33.7 g/dL (28.0-37.0); MCV 94.4 fL (80.0-100.0); MONOCYTES 9.7 % (1.0-8.0); PLATELET COUNT 184 thou/uL (150-400); POLYS 60.5 % (36.0-66.0); RBC 2.41 mil/uL (4.20-5.00); RDW 14.6 % (10.5-14.5); WBC 6.1 thou/uL (4.0-11.0)
[2019-10-07 06:46] LABS: CALCIUM 8.5 mg/dL (8.5-10.1); CREATININE 0.8 mg/dL (0.6-1.0); MAGNESIUM 1.9 mg/dL (1.8-2.4); PHOSPHORUS 2.7 mg/dL (2.5-4.9); POTASSIUM 4.3 mmol/L (3.5-5.1)
[2019-10-07 07:47] VITALS: BP 118/40
[2019-10-07] MEDS ORDERED: ACETAMINOPHEN325 M1 PO (09:25)
[2019-10-07] MEDS ORDERED: PEPCID20 MG PO (09:25)
[2019-10-07] MEDS ORDERED: FOLIC ACID1 MG PO (09:25)
[2019-10-07] MEDS ORDERED: HYDROCODON-ACE1 EAC7 PO (09:25)
[2019-10-07 15:53] VITALS: BP 129/62; BP 138/68
[2019-10-07 19:50] VITALS: BP 136/58
[2019-10-08 04:44] VITALS: BP 131/68
[2019-10-08 08:10] VITALS: BP 157/75
[2019-10-08] MEDS ORDERED: MIRALAX17 GM PO (10:40)
[2019-10-08] MEDS ORDERED: COLACE 100 MG100 MG PO (10:40)
== END 2019-10-08 15:18 | DRG 481 ==
LOC: ER 17:24 → 4S 18:16 → EROBS 18:16 → 4S 19:48
PROVIDERS: Emergency Medicine; Internal Medicine; Orthopaedic Surgery; ADMIT Hospitalist
PROC: BQ14ZZZ Fluoroscopy of Left Femur (ICD-10-PCS; principal; 2019-10-04)
PROC: 0QS706Z Reposition Left Upper Femur with Intramedullary Internal Fixation Device, Open Approach (ICD-10-PCS; principal; 2019-10-04)
PROC: 30233N1 Transfusion of Nonautologous Red Blood Cells into Peripheral Vein, Percutaneous Approach (ICD-10-PCS; 2019-10-07)
DX: S72.22XA Displaced subtrochanteric fracture of left femur, initial encounter for closed fracture (principal); E87.1 Hypo-osmolality and hyponatremia; D62 Acute posthemorrhagic anemia; F41.9 Anxiety disorder, unspecified; F32.9 Major depressive disorder, single episode, unspecified; F20.9 Schizophrenia, unspecified; G30.9 Alzheimer's disease, unspecified; F02.80 Dementia in other diseases classified elsewhere, unspecified severity, without behavioral disturbance, psychotic disturbance, mood disturbance, and anxiety; J43.9 Emphysema, unspecified; I25.10 Atherosclerotic heart disease of native coronary artery without angina pectoris; F17.210 Nicotine dependence, cigarettes, uncomplicated; I10 Essential (primary) hypertension; E87.8 Other disorders of electrolyte and fluid balance, not elsewhere classified; D72.829 Elevated white blood cell count, unspecified; H26.9 Unspecified cataract; G47.00 Insomnia, unspecified; Z80.8 Family history of malignant neoplasm of other organs or systems; Z82.49 Family history of ischemic heart disease and other diseases of the circulatory system; Z95.5 Presence of coronary angioplasty implant and graft; Z79.899 Other long term (current) drug therapy; Y99.8 Other external cause status; I25.2 Old myocardial infarction; Q85.00 Neurofibromatosis, unspecified; Z79.891 Long term (current) use of opiate analgesic; W06.XXXA Fall from bed, initial encounter; Y92.032 Bedroom in apartment as the place of occurrence of the external cause
CPT/HCPCS: 10102; 50010; 50101; 50133; 50386; 50635; 51412; 51538; 52304; 56525; 57092; 5736; 5740; 5741; 62110; 62900; 70005

== ENCOUNTER → 2020-01-11 | Outpatient (CLI) | payer OTHER ==
[~2020-01-11] MED LIST changes: +ACETAMINOPHEN325 M1 PO; +CELEXA 10 MG TA10 M1 PO; +COLACE 100 MG100 MG PO; +FOLIC ACID1 MG PO; +HYDROCODON-ACE1 EAC7 PO; +MIRALAX17 GM PO; +PEPCID20 MG PO; +PROAIR HFA8.5 GM INH; +SPIRIVA18 MCG INH; +TRAZODONE 150150 M1 PO
== END ==
LOC: ULTRA 13:03
PROVIDERS: ATTEND Family Medicine
DX: E01.0 Iodine-deficiency related diffuse (endemic) goiter (principal); R20.2 Paresthesia of skin; M61.40 Other calcification of muscle, unspecified site; I70.213 Atherosclerosis of native arteries of extremities with intermittent claudication, bilateral legs

== ENCOUNTER → 2020-01-25 | Outpatient (CLI) | payer OTHER ==
[~2020-01-25] MED LIST changes: +ASA81BEC PO; +CLOPIDOGREL75 MG PO; +LIPITOR40 MG PO
--- NOTE | 2020-01-29 12:06 | PATH ---
[facility] [place] [address] PATHOLOGY RPT PROCEDURE Name: VINITA WARD Room #: REG [facility].#: [id number] Admission: 01/25/20 Date of : 54 Discharge: Report #: [id number] Path Case #: [id number] Note [facility] Accession Number: [id number] TESTS RESULT FLAG UNITS REF RANGE LAB Clinician Provided Cytology Information No. of containers..01 Other (Miscellaneous) Source: R. THYROID DIAGNOSIS: 02 RIGHT THYROID, FINE NEEDLE ASPIRATION NEGATIVE FOR MALIGNANT EPITHELIAL CELLS. BETHESDA CATEGORY II. SPECIMEN CONSISTS OF A HETEROGENEOUS LYMPHOID POPULATION, HURTHLE CELLS, AND FOLLICULAR CENTER FRAGMENTS. THIS PATTERN IS COMPATIBLE WITH A CHRONIC LYMPHOCYTIC THYROIDITIS. THIS INTERPRETATION INCLUDES EVALUATION OF A CELL BLOCK. Comment: Nuclear features of papillary thyroid carcinoma are not identified. Please note sample may not be entirely transportation services representative; correlate clinically and follow-up as indicated. Dr. Patricia Higgins has seen this case and concurs with my interpretation. Pathologist ICD10: 02 E06.3 Signed out by: Lina Valadez MD, Pathologist NPI- [id number] Performed by: Roland Nichole, Ornamental Ironworking Supervisor ([facility]) Gross description: 01 20 ML, CLR PEACH/PINK, 3 TP 2 DQ /LCS 01/26/2020 0826 Local FLAG LEGEND: L-Low Normal,H-High Normal,LL-Alert Low,HH-Alert High <-Panic Low,>-Panic High,A-Abnormal,AA-Critical Abnormal Performed at: 01 [facility] [address] [place] [address] [address] [place] [address] Deyvi Haro MD, [address] [address] Lina Valadez MD, Specimen Comment: A courtesy copy of this report has been sent to [phone] Specimen Comment: Report sent to Performed at: [address] [address] PATHOLOGY RPT PROCEDURE Name: VINITA WARD Room #: REG VITOR Benedict#: [id number] Admission: 01/25/20 Date of : 54 Discharge: Report #: [id number] Path Case #: [id number] [facility] [address] [place] [address] [address], [place], [place] [id number] MD Deyvi aHro MD Phone: [phone]
== END | disposition home or self-care (01) ==
LOC: ULTRA 10:01
PROVIDERS: ATTEND Family Medicine
DX: E04.1 Nontoxic single thyroid nodule (principal); I25.10 Atherosclerotic heart disease of native coronary artery without angina pectoris; G30.9 Alzheimer's disease, unspecified; F02.80 Dementia in other diseases classified elsewhere, unspecified severity, without behavioral disturbance, psychotic disturbance, mood disturbance, and anxiety; Z98.890 Other specified postprocedural states; Z79.899 Other long term (current) drug therapy

== ENCOUNTER → 2020-01-30 | Outpatient (CLI) | payer OTHER ==
[~2020-01-30] MED LIST changes: -ASA81BEC PO; -CLOPIDOGREL75 MG PO; -LIPITOR40 MG PO
== END ==
LOC: SJCVCIMAG 11:50
PROVIDERS: ATTEND Nuclear Medicine Nuclear Cardiology
DX: I70.203 Unspecified atherosclerosis of native arteries of extremities, bilateral legs (principal); J44.9 Chronic obstructive pulmonary disease, unspecified; F41.9 Anxiety disorder, unspecified; I25.10 Atherosclerotic heart disease of native coronary artery without angina pectoris; I25.2 Old myocardial infarction; I10 Essential (primary) hypertension; Z98.890 Other specified postprocedural states; Z79.899 Other long term (current) drug therapy; Z87.891 Personal history of nicotine dependence

== ENCOUNTER 2020-02-05 07:52 | Observation (INO) | payer OTHER ==
[~2020-02-05] VITALS: Ht 152.4 cm; Wt 57.6 kg
[2020-02-05] VITALS (12 sets, daily range): BP systolic 71–169; BP diastolic 43–81
--- NOTE | ~2020-02-05 | H ---
[facility] [place] [address] HISTORY AND PHYSICAL Name: VINITA WARD [facility] [id number] Admission: 02/05/20 Attend Phys: René Childs MD Discharge: Date of : 54 Report #: [id number] THIS REPORT FOR: cc: Jagjit Rizo,Gavin Garibay MD [facility] ~ CC: René Rizo DATE OF SERVICE: 02/05/2020 HISTORY OF PRESENT ILLNESS: The patient is a 69-year-old female who I am asked to evaluate for coronary artery disease. She has a history of peripheral vascular disease and prior stents placed, 2010 to the RCA by Dr. [place]. There is a 60% diagonal, 50% circumflex and 50% LAD lesions at that setting. She has done well, but been having some recurrent ____ her angina appears to be progressive headache and neck discomfort. She is also undergoing a lower extremity angiography for iliac stenosis bilaterally. Two bare-metal stents were placed in the right coronary artery in 02/2010. She has not had any recent Cardiology followup. She just recently quit smoking a year ago after 50-pack years. Her home medications are albuterol, Celexa, Advair, Combivent, metoprolol tartrate 25 b.i.d., Zyprexa. She does not take statin therapy. She does note a definite decrease in exercise tolerance but obviously is limited by the lungs. PAST MEDICAL HISTORY: Positive for the coronary artery disease with prior stent, peripheral vascular disease with iliac stents, lumbar diskectomy, hypertension, COPD, long tobacco use, hypercholesterolemia, DJD, perhaps some early dementia, although still lives independently, hypertension, hernia repair and left leg surgery. SOCIAL HISTORY: Long time smoker, quit a year ago. No current alcohol or illicit drug use. She lives independently in an apartment. She is single and never . ALLERGIES: No known drug allergies. FAMILY HISTORY: Brother had stents at around age 70. REVIEW OF SYSTEMS: Essentially negative except for stated above. PHYSICAL EXAMINATION: GENERAL: Pleasant, alert. VITAL SIGNS: Blood pressure 136/80. HEENT: Eyes reveal xanthelasmas. Pharynx is clear. NECK: Shows preserved upstrokes, faint right-sided bruit, no JVD. [facility] [address] [place] [address] HISTORY AND PHYSICAL Name: VINITA WARD Room #: [facility] [id number] Admission: 02/05/20 Attend Phys: René Childs MD Discharge: Date of : 54 Report #: [id number] LUNGS: Prolonged expiratory phase. CARDIOVASCULAR: Distant heart tones, S1 and S2. ABDOMEN: Soft. No HSM or abdominal bruit. EXTREMITIES: Reveal trace of edemas. Distal pulses diminished. Femoral pulses have actually improved after the stent. SKIN: Warm and dry without xanthoma or ulcer. MUSCULOSKELETAL: Generalized arthritic changes. ASSESSMENT: 1. Coronary artery disease with high-grade proximal mid LAD disease, successful stent placement of a 2.25 x 12 [place] postdilated 2.5 mm. 2. ____ RCA stents widely patent, moderate circumflex disease. See catheterization report. 3. Peripheral vascular disease with bilateral iliac stents placed. 4. Hypertension. 5. Hypercholesterolemia. 6. Degenerative joint disease. 7. Early dementia. 8. Chronic obstructive pulmonary disease with longstanding tobacco use. RECOMMENDATIONS AND PLAN: Continue current therapy. Dual antiplatelet therapy now initiated, statin therapy initiated, to CCU to follow post-coronary and peripheral vascular stent protocol. The patient is pain free, hemodynamically stable, resolve of EKG changes are noted. By: 1510 1525 Gavin Sibley MD, FACC /nt
[2020-02-05] MEDS ORDERED: ASA81BEC PO (08:47)
--- NOTE | 2020-02-05 17:48 | NUR ---
PT ADMITTED TO 212 FROM INSPECTOR [employer], BROUGHT BY JADON FERMIN. L GROIN MYNX CDI, NO HEMATOMA UPON PALPATION, R GROIN DRESSING ALSO CDI, BUT HEMATOMA THE SIZE OF A FIST UPON PALPATION, JENY HELD ADDITIONAL PRESSURE FOR 15 MINUTES, BP WAS 70S SYSTOLICALLY, CAME UP TO HUNDREDS SYSTOLICALLY, IVF RUNNING, PT LYING FLAT IN BED INSTRUCTED IMMOBILIZATION FOR ADDITIONAL 6 HRS. PT AWARE, SOMEWHAT ANXIOUS, YET COMPLIANT, NEEDS TO VOID, YET SHY BLADDER WILL NOT ALLOW, PT REQUESTED A CATHETER TO HELP, PAGED SHALOM, WILL MONITOR
--- NOTE | 2020-02-06 02:58 | NUR ---
PATIENT IS ADVANCING SLOWLY IN HER CARE PLAN. VITAL SIGNS STABLE WITH PATIENT HAVING NO COMPLAINTS OF NAUSEA. PATIENT DID COMPLAIN OF PAIN VIA HEADACHE WHICH WAS TREATED APPROPRIATELY THROUGH MEDICATION AND NON PHARMACOLOGICAL INTERVENTION. BILATERAL CATH SITES C/D/I WITH SENSATION INTACT AND EQUAL PULSES. PATIENT IS ANXIOUS FOR POTENTIAL DISCHARGE TODAY. CONTINUE PLAN OF CARE.
[2020-02-06 04:25] VITALS: BP 120/53
[2020-02-06 05:02] LABS: HEMATOCRIT 28.3 % (37.0-47.0); HEMOGLOBIN 9.8 gm/dL (12.0-15.0); MCHC 34.6 g/dL (28.0-37.0); MCV 95.4 fL (80.0-100.0); RBC 2.97 mil/uL (4.20-5.00); RDW 17.3 % (10.5-14.5); WBC 7.8 thou/uL (4.0-11.0)
[2020-02-06 05:24] LABS: ALBUMIN 3.3 g/dL (3.4-5.0); CALCIUM 8.4 mg/dL (8.5-10.1); CREATININE 0.9 mg/dL (0.6-1.0); POTASSIUM 4.3 mmol/L (3.5-5.1); TOTAL BILIRUBIN 0.6 mg/dL (0.2-1.0); TOTAL PROTEIN 6.3 g/dL (6.4-8.2); TROPONIN-I 0.13 ng/mL (<0.06)
[2020-02-06] MEDS ORDERED: CLOPIDOGREL75 MG PO (07:25)
[2020-02-06] MEDS ORDERED: LIPITOR40 MG PO (07:25)
[2020-02-06 07:50] VITALS: BP 132/68
[2020-02-06 10:04] VITALS: BP 132/68
--- NOTE | 2020-02-06 14:54 | CATHLAB ---
[facility] [place] [address] INVASIVE PROCEDURE REPORT Name: VINITA WARD Room #: 212-P [facility] Celso Benedict#: [id number] Admission: 02/05/20 Attend Phys: René Childs MD Discharge: 02/06/20 Date of : 54 Report #: [id number] THIS REPORT FOR: cc: Jagjit Rizo James A. DO Mancuso, Gerald M. MD [facility] ~ APPROVED REPORT Study performed: 02/05/2020 13:32:48 Patient Details Patient Status: Out-Patient Room #: The patient is a 69 year-old female Event Personnel Gavin Sibley Operations Support Professionals, Georgiana Johnson RT(R)() Scrub, Flako Morales RTR Scrub, Zeny Zarate RTR Monitor, Nikolas Mai RN Procedures Performed Art Access - R femoral artery* Left Heart Cath w/or w/o Coronaries [id number] [facility] JD Place w/wo Plasty Single LAD 879798 Hemostasis w/ Mynx 06111 Mod Sed Same Phys/QHP Ea 376755 Procedure Narrative The was infiltrated with 1% Lidocaine subcutaneous anesthesia. A 6F sheath was inserted into the RFA^. Coronary angiography was performed using coronary diagnostic catheters. The right coronary system was accessed and visualized with a JR4 catheter. The left coronary system was accessed and visualized with a JL4 catheter. The left ventricle was accessed and visualized with a PIGTAIL catheter. Left ventriculogram was performed in 30 degree projection. Closure device was deployed with a Fr MYNXGRIP 6/7F #[id number]. The patient tolerated the procedure well and there were no complications associated with the procedure. There was no hematoma. Intraoperative Conscious Sedation Sedation start time: 11:43 Case end Time: 15:24 Fentanyl 200 mcg Versed 4 mg Contrast and sedation totals are from both the heart cath and the runoff procedures. Fluoro Time: 27.15 minutes [facility] [place] [address] INVASIVE PROCEDURE REPORT Name: VINITA WARD Room #: 212-P [facility] IN ..#: [id number] Admission: 02/05/20 Attend Phys: René Childs, Discharge: 02/06/20 Date of : 54 Report #: [id number] Dose: DAP 38236.20 cGycm2 2465 mGy Contrast Type and Amount: Omnipaque 220 ml Hemodynamics The aortic pressure is 147/52 mmHg with a mean of 86 mmHg. The left ventricular pressure is 140/6 mmHg with a mean of mmHg. The left ventricular end diastolic pressure is 13 mmHg. PCI Technique Lesion A LAUNCHER 6FR EBU 3.5 #[id number] Guide Catheter was used to engage the ostium. A Luge Wire .014 x 182CM #[id number] Interventional Guidewire was used to cross the lesion. BALLOON DILATION A Balloon catheter Sprinter OTW 2.25 x 12 #[id number] was inserted and inflated up to 10atm for 22seconds. Additional Inflation: 14atm for 16seconds. Additional Inflation: 14atm for 23seconds. STENT DEPLOYMENT A stent RESOLUTE SCOTT OTW 2.25 X 12 #[id number] was inserted and inflated up to 12atm for 24seconds. Additional Inflation: 8atm for 5seconds. Additional Inflation: 14atm for 16seconds. POST STENT DEPLOYMENT BALLOON DILATION A Balloon catheter TREK NC OTW 2.5 X 12 #[id number] was inserted and inflated up to 10atm for 20seconds. Additional Inflation: 12atm for 22seconds. PCI Technique Lesion 2 Percutaneous Coronary Intervention was performed on the Common iliac. PCI Technique Lesion 3 Percutaneous Coronary Intervention was performed on the proximal left anterior descending artery segment. Conclusion #1. Successful PTCA stent of a high-grade and moderately calcified proximal mid LAD lesion placement of a 2.25 x 12 resolute scott stent postdilated 2.5 mm DOMINGA grade III flow. Diagonal branch moderately disease off of the proximal LAD #2 left main moderately calcified mildly disease giving rise to LAD and circumflex #3 70% ostial circumflex small nondominant and moderate to severe diffuse disease calcified system relatively small area of distribution [address] [address] INVASIVE PROCEDURE REPORT Name: VINITA WARD Room #: 212-P [facility] IN M.R.#: [id number] Admission: 02/05/20 Attend Phys: René Childs, Discharge: 02/06/20 Date of : 54 Report #: [id number] #4 large dominant right coronary artery previously placed stent has mild in-stent restenosis proximally moderate mid vessel calcification 40 to 50% long narrowing preserved distal PDA ALONDRA. #5 hyperdynamic LV function EF 60% Recommendations and plan: Continue aggressive risk factor modification. Dual antiplatelet therapy has been initiated. This was initiated by Dr. Childs at prior iliac stent placement see his dictation. Transfer in stable condition pain-free to CCU to follow post coronary stent protocol. <ELECTRONICALLY SIGNED> By: Gavin Sibley MD, FACC 02/06/20 1453 1453 1453 Gavin Sibley MD, FACC /INF
--- NOTE | 2020-02-06 16:03 | EKG ---
[facility] [place] [address] ELECTROCARDIOGRAM REPORT Name: VINITA WARD Room #: 212-P [facility] M.R.#: [id number] Admission: 02/05/20 Attend Phys: René Childs MD Discharge: 02/06/20 Date of : 54 Report #: [id number] THIS REPORT FOR: cc: Jagjit Rizo James A. DO Couchonnal, Luis F. MD ~ THIS REPORT FOR: //name// [facility] Test Date: 2020-02-05 Test Time: 08:56:26 Pat Name: VINITA WARD Department: Room: [facility] Gender: F Crusher Foreman: THOMAS : 1950 Requested By: Gavin Sibley Order Number: [id number] MD: José Miguel Moran Measurements Intervals [place] Rate: 57 P: 55 IN: 162 QRS: 31 QRSD: 118 T: 60 QT: 491 QTc: 478 Interpretive Statements Sinus rhythm Nonspecific intraventricular conduction delay Minimal ST elevation, inferior leads Baseline wander in lead(s) V4 Compared to ECG 10/04/2019 18:09:56 Electronically Signed On 02-06-2020 16:02:49 CDT by José Miguel Moran [email or web address] <ELECTRONICALLY SIGNED> By: José Miguel Moran MD 02/06/20 1602 5 5 José Miguel Moran MD /EPI
--- NOTE | 2020-02-06 16:06 | EKG ---
[facility] [place] [address] ELECTROCARDIOGRAM REPORT Name: VINITA WARD Room #: 212-[facility] M.R.#: [id number] Admission: 02/05/20 Attend Phys: René Childs MD Discharge: 02/06/20 Date of : 54 Report #: [id number] THIS REPORT FOR: cc: Jagjit Rizo James A. DO Couchonnal, Luis F. MD ~ THIS REPORT FOR: //name// [facility] Test Date: 2020-02-06 Test Time: 07:10:38 Pat Name: VINITA WARD Department: Room: 212 Gender: F Telephone Ad Taker: THOMAS : 1950 Requested By: Gavin Sibley Order Number: [id number] MD: José Miguel Moran Measurements Intervals [place] Rate: 73 P: 81 TN: 150 QRS: 33 QRSD: 112 T: 72 QT: 428 QTc: 472 Interpretive Statements Sinus rhythm Borderline intraventricular conduction delay Borderline repolarization abnormality Baseline wander in lead(s) V5 Compared to ECG 02/05/2020 08:56:26 ST (T wave) deviation no longer present Electronically Signed On 02-06-2020 16:06:30 CDT by José Miguel Moran [email or web address] <ELECTRONICALLY SIGNED> By: José Miguel Moran MD 02/06/20 1606 9 9 José Miguel Moran MD /EPI
== END 2020-02-06 10:39 | disposition home or self-care (01) ==
LOC: CATH 07:52 → 2N 15:59 → CATH 16:00 → 2N 16:00 → CATH 16:51 → 2N 02-06 10:39
PROVIDERS: ADMIT Internal Medicine Cardiovascular Disease; ATTEND Nuclear Medicine Nuclear Cardiology
DX: I25.10 Atherosclerotic heart disease of native coronary artery without angina pectoris (principal); I70.202 Unspecified atherosclerosis of native arteries of extremities, left leg; I10 Essential (primary) hypertension; E78.5 Hyperlipidemia, unspecified; J44.9 Chronic obstructive pulmonary disease, unspecified; R33.9 Retention of urine, unspecified; F03.90 Unspecified dementia, unspecified severity, without behavioral disturbance, psychotic disturbance, mood disturbance, and anxiety; M19.90 Unspecified osteoarthritis, unspecified site; Z79.82 Long term (current) use of aspirin; Z79.899 Other long term (current) drug therapy

== ENCOUNTER → 2020-03-19 | Outpatient (CLI) | payer OTHER ==
[~2020-03-19] MED LIST changes: +ASA81BEC PO; +CLOPIDOGREL75 MG PO; +DESYREL150 MG PO; +LEVOTHYROXINE25 MCG PO; +LIPITOR40 MG PO; +LOPRESSOR100 M1 PO; +OLANZAPINE10 MG PO; +VENTOLIN HFA 1818 GM INH
== END ==
LOC: LAB 10:36
PROVIDERS: ATTEND Orthopaedic Surgery
DX: Z01.812 Encounter for preprocedural laboratory examination (principal); Z20.828 Contact with and (suspected) exposure to other viral communicable diseases

== ENCOUNTER 2020-03-21 07:43 | Day surgery (SDC) | payer OTHER ==
[~2020-03-21] VITALS: Ht 157.5 cm; Wt 59.0 kg
[2020-03-21 09:53] VITALS: BP 182/78
[2020-03-21 10:57] VITALS: BP 182/78
--- NOTE | 2020-03-22 12:22 | O ---
[facility] [place] [address] OPERATIVE REPORT Name: VINITA WARD Room #: DEP [facility].#: [id number] Admission: 03/21/20 Attend Phys: René Lind MD Discharge: 03/21/20 Date of : 54 Report #: [id number] THIS REPORT FOR: cc: Jagjit Rizo James A. DO Clymer, David J. MD ~ CC: René Rizo DATE OF SERVICE: 03/21/2020 PREOPERATIVE DIAGNOSIS: Retained metal fixation of left distal femur. POSTOPERATIVE DIAGNOSIS: Retained metal fixation of left distal femur. PROCEDURE: Removal of metal screw, left distal femur. SURGEON: René Lind MD INDICATIONS: This 69-year-old female who underwent a long TFN nail fixation for a subtrochanteric left femur fracture some months ago. The fracture remains in good alignment, but I think it is not fully healed and remodeled yet. The gregorio has migrated distally as far as the distal interlock screw will allow. I have decided to go ahead with removal of that screw to allow shared weightbearing and dynamization of the nail construct, hoping this will improve fracture healing. DESCRIPTION OF PROCEDURE: The patient was taken to the operating room where only local anesthetic was initially employed at her request. The left femur leg were meticulously prepped and draped. C-arm was used to visualize the operative site. A small skin incision was made through the old surgical scar at the distal lateral femur. The subcutaneous tissues and fascia were spread gently. The screw was identified and removed without difficulty. She did require a bit of additional IV sedation as she was uncomfortable during the deepest portion of the procedure. No other abnormalities were identified. The skin edges were then reapproximated with several 4-0 nylon sutures. A sterile dressing was applied. The patient was returned to recovery room in good condition. She anticipates home with family assistance. <ELECTRONICALLY SIGNED> By: René Lind MD 03/22/20 1222 1007 1022 René Lind MD /nt
== END 2020-03-21 11:37 | disposition home or self-care (01) ==
LOC: TBA 07:43 → OR 07:43 → TBA 07:44 → OR 08:49
PROVIDERS: ATTEND Orthopaedic Surgery
DX: Z47.2 Encounter for removal of internal fixation device (principal); I25.10 Atherosclerotic heart disease of native coronary artery without angina pectoris; I25.2 Old myocardial infarction; I73.9 Peripheral vascular disease, unspecified; J43.9 Emphysema, unspecified; F32.9 Major depressive disorder, single episode, unspecified; F41.9 Anxiety disorder, unspecified; G30.9 Alzheimer's disease, unspecified; F02.80 Dementia in other diseases classified elsewhere, unspecified severity, without behavioral disturbance, psychotic disturbance, mood disturbance, and anxiety; Z98.890 Other specified postprocedural states; Z79.899 Other long term (current) drug therapy; Z98.42 Cataract extraction status, left eye; Z87.891 Personal history of nicotine dependence; Z98.41 Cataract extraction status, right eye
CPT/HCPCS: 50010; 50101; 50386; 57091; 62110; 62850; 70005

== ENCOUNTER → 2020-05-28 | Outpatient (CLI) | payer OTHER | LOC: SJCVCIMAG 07:36 | PROVIDERS: ATTEND Nuclear Medicine Nuclear Cardiology | DX: I65.23 Occlusion and stenosis of bilateral carotid arteries (principal); I73.9 Peripheral vascular disease, unspecified; M79.604 Pain in right leg; M79.605 Pain in left leg; I25.10 Atherosclerotic heart disease of native coronary artery without angina pectoris; J44.9 Chronic obstructive pulmonary disease, unspecified; I25.2 Old myocardial infarction; Z95.828 Presence of other vascular implants and grafts; Z79.82 Long term (current) use of aspirin; Z79.899 Other long term (current) drug therapy; Z87.891 Personal history of nicotine dependence ==

== ENCOUNTER → 2021-01-21 | Outpatient (CLI) | payer OTHER | LOC: SJCVCIMAG 08:15 | PROVIDERS: ATTEND Internal Medicine Cardiovascular Disease | DX: R94.31 Abnormal electrocardiogram [ECG] [EKG] (principal); I70.203 Unspecified atherosclerosis of native arteries of extremities, bilateral legs; M79.605 Pain in left leg; M79.604 Pain in right leg; I25.10 Atherosclerotic heart disease of native coronary artery without angina pectoris; J44.9 Chronic obstructive pulmonary disease, unspecified; E78.00 Pure hypercholesterolemia, unspecified; I25.2 Old myocardial infarction; Z87.891 Personal history of nicotine dependence; Z79.82 Long term (current) use of aspirin; Z79.899 Other long term (current) drug therapy ==

== ENCOUNTER 2021-03-18 13:46 | Emergency (ER) | payer OTHER ==
[~2021-03-18] VITALS: Ht 160 cm; Wt 59.0 kg
[2021-03-18 14:14] LABS: ABSOLUTE NEUTROPHILS 6.3 thou/uL (1.4-8.2); BASOPHILS 0.6 % (0.0-2.0); EOSINOPHILS 0.6 % (0.0-3.0); HEMATOCRIT 32.9 % (37.0-47.0); HEMOGLOBIN 10.8 gm/dL (12.0-15.0); LYMPHOCYTES 20.1 % (24.0-44.0); MCH 30.3 pg (26.0-34.0); MCHC 32.7 g/dL (28.0-37.0); MCV 92.4 fL (80.0-100.0); MONOCYTES 8.7 % (1.0-8.0); PLATELET COUNT 242 thou/uL (150-400); RBC 3.56 mil/uL (4.20-5.00); RDW 15.8 % (10.5-14.5)
[2021-03-18 14:24] LABS: CALCIUM 8.7 mg/dL (8.5-10.1); CREATININE 1.3 mg/dL (0.6-1.0); POTASSIUM 3.3 mmol/L (3.5-5.1)
[2021-03-18 14:28] LABS: APTT 27.1 Seconds (24.5-32.8); INR 1.09; PROTIME 11.8 Seconds (10.5-12.1)
[2021-03-18 14:30] LABS: ALBUMIN 3.9 g/dL (3.4-5.0); TOTAL BILIRUBIN 0.5 mg/dL (0.2-1.0); TOTAL PROTEIN 7.7 g/dL (6.4-8.2)
[2021-03-18 15:44] VITALS: BP 147/63
--- NOTE | 2021-03-18 15:56 | EKG ---
[place] [address] [facility] [place] [address] ELECTROCARDIOGRAM REPORT Name: VINITA WARD [id number] Admission: 03/18/21 Attend Phys: Discharge: 03/18/21 Date of : 54 Report #: [id number] [facility] ED Test Date: 2021-03-18 Test Time: 14:00:46 Pat Name: VINITA WARD Department: Room: Gender: F Mailroom Supervisor: MARY ALICE : 1950 Requested By: Joselito Reyes Order Number: [id number] MD: Jesus Keita Measurements Intervals [place] Rate: 69 P: 69 [place]: 144 QRS: 32 QRSD: 109 T: 76 QT: 435 QTc: 466 Interpretive Statements Sinus rhythm Compared to ECG 02/06/2020 07:10:38 No significant changes Electronically Signed On 03-18-2021 15:56:06 CDT by Jesus Keita [email or web address] <ELECTRONICALLY SIGNED> By: Jesus Keita MD, [facility] 03/18/21 1556 1400 [facility] Jesus Keita MD, FACC /EPI
== END 2021-03-18 15:44 | disposition short-term general hospital (02) ==
LOC: ER 13:46
PROVIDERS: Nurse Practitioner
DX: S05.12XA Contusion of eyeball and orbital tissues, left eye, initial encounter (principal); Z20.822 Contact with and (suspected) exposure to COVID-19; S00.83XA Contusion of other part of head, initial encounter; S06.6X9A Traumatic subarachnoid hemorrhage with loss of consciousness of unspecified duration, initial encounter; R22.0 Localized swelling, mass and lump, head; F41.9 Anxiety disorder, unspecified; F32.9 Major depressive disorder, single episode, unspecified; F20.9 Schizophrenia, unspecified; J44.9 Chronic obstructive pulmonary disease, unspecified; E03.9 Hypothyroidism, unspecified; I10 Essential (primary) hypertension; E78.5 Hyperlipidemia, unspecified; F17.210 Nicotine dependence, cigarettes, uncomplicated; Z79.82 Long term (current) use of aspirin; Z79.899 Other long term (current) drug therapy; W19.XXXA Unspecified fall, initial encounter; Y93.89 Activity, other specified; Y92.89 Other specified places as the place of occurrence of the external cause; Y99.8 Other external cause status

== ENCOUNTER → 2021-03-18 | Outpatient (CLI) | payer OTHER | LOC: CAT 12:54 | PROVIDERS: ATTEND Family Medicine | DX: S02.85XA Fracture of orbit, unspecified, initial encounter for closed fracture (principal); S02.92XA Unspecified fracture of facial bones, initial encounter for closed fracture; S09.90XA Unspecified injury of head, initial encounter; K64.8 Other hemorrhoids; I72.5 Aneurysm of other precerebral arteries; X58.XXXA Exposure to other specified factors, initial encounter; Y93.89 Activity, other specified; Y92.89 Other specified places as the place of occurrence of the external cause; Y99.8 Other external cause status ==

== ENCOUNTER 2021-05-19 13:03 | Inpatient (IN) | payer OTHER ==
[~2021-05-19] VITALS: Ht 160 cm; Wt 59.0 kg
--- NOTE | ~2021-05-19 | EMS ---
[place] [address] EMS Patient Care Report Name: VINITA WARD Room #: 461-P ADM IN M.R.#: [id number] Admission: 05/19/21 Attend Phys: Bonnie Benites MD Discharge: Date of : 54 Report #: [id number] THIS REPORT FOR: //name// Report Transmitted: 05/21/2021 11:06 EMS Care Summary [place], [place]/[facility] Incident [id number] @ 05/19/2021 12:31 [address] [place] [address] Patient VINITA WARD Female, 70 Years 1950 Patient Address [address] [place] [address] Patient History Dementia,Stroke/CVA,Schizophrenia, Patient Allergies No known allergies, Patient Medications None Reported, Chief Complaint evaluation for NH placement Disposition Transported No Lights/[place] Dispatch Reason Falls Transported To [facility] Narrative family called for pt who is having an increased hx of falls. the ambulance was at her apt yesterday for a fall but pt refused transport. [place] [address] EMS Patient Care Report Name: VINITA WARD Room #: 461-P ADM IN M.R.#: [id number] Admission: 05/19/21 Attend Phys: Bonnie Benites MD Discharge: Date of : 54 Report #: [id number] on her today and she was on the floor again. she appears to have fallen during the night again and was unable to get up. family is concerned she is not able to live on her own anymore and are req her eval for possible placement at a facility. pt is found lying on the floor, in urine soaked clothing. she c/o head pain where she hit her head on the carpeted floor. she denies LOC. she agrees to eval at [facility]. pt to stair chair and out to cot. transport w/o incident . pt to hallway bed, report to staff. Initial Vitals @12:52P: 108,R: 18,BP: 100/60,Pain: 6/10,GCS: 14,Glucose: 115,SpO2: 95,Revised Trauma: 12, Assessments @12:34MENTAL:Place Oriented,Confused,Other,Person Oriented,SKIN:Other,HEENT:Head/Face: Other,LUNG SOUNDS:ABDOMEN:PELVIS//GI:EXTREMITIES:PULSE:Radial: 2+ Normal,NEURO: Impression Injury of Head Procedures @12:34 ALS Assessment Response: Unchanged @12:39 Stairchair Response: Unchanged @12:46 Stretcher Response: Unchanged Timeline 12:28,Call Received 12:28,Dispatch Notified 12:31,Dispatched 12:31,En Route 12:33,On Scene 12:34,At Patient 12:34,ALS Assessment,Response: Unchanged 12:39,Stairchair,Response: Unchanged 12:46,Stretcher,Response: Unchanged 12:48,Depart Scene 12:52,BP: 100/60 M,PULSE: 108,RR: 18 R,SPO2: 95 Ox,ETCO2: ,B,PAIN: 6,GCS: 14, 12:57,At Destination 13:15,Call Closed Disclaimer v1.1 Copyright 2020 [employer] This EMS Care Summary contains data elements from the applicable legal record (which may be displayed differently). It is designed to provide pertinent [facility] [address] [place] [address] EMS Patient Care Report Name: VINITA WARD Room #: 461-P ADM IN M.R.#: [id number] Admission: 05/19/21 Attend Phys: Bonnie Benites MD Discharge: Date of : 54 Report #: [id number] information for the following purposes: continuity of care, clinical quality, and state data reporting. The complete legal record is available to ED staff and administrators of the receiving hospital in [employer] Patient Tracker. All data is provided "as is."
[~2021-05-19 13:03] MED LIST changes: -LOPRESSOR100 M1 PO; +METOPROLOL TART25 MG PO
[2021-05-19 13:04] VITALS: BP 120/73
[2021-05-19] MEDS ORDERED: CELEXA 20 MG TA20 MG PO (13:09)
[2021-05-19] MEDS ORDERED: ASPIRIN EC81 M1 PO (13:10)
[2021-05-19] MEDS ORDERED: GABAPENTIN 100100 MG PO (13:13)
[2021-05-19 16:01] LABS: ABSOLUTE NEUTROPHILS 10.6 thou/uL (1.4-8.2); BASOPHILS 0.4 % (0.0-2.0); EOSINOPHILS 0.1 % (0.0-3.0); HEMOGLOBIN 14.2 gm/dL (12.0-15.0); LYMPHOCYTES 10.3 % (24.0-44.0); MCH 29.4 pg (26.0-34.0); MCHC 31.6 g/dL (28.0-37.0); MCV 92.9 fL (80.0-100.0); MONOCYTES 9.4 % (1.0-8.0); PLATELET COUNT 373 thou/uL (150-400); POLYS 79.8 % (36.0-66.0); RBC 4.85 mil/uL (4.20-5.00); RDW 16.2 % (10.5-14.5); WBC 13.3 thou/uL (4.0-11.0)
[2021-05-19 16:04] LABS: CALCIUM 9.7 mg/dL (8.5-10.1); CREATININE 1.1 mg/dL (0.6-1.0); POTASSIUM 3.9 mmol/L (3.5-5.1)
[2021-05-19 17:07] LABS: URINE BILIRUBIN 1+ (Negative); URINE BLOOD 3+ (Negative); URINE CLARITY SL CLOUDY; URINE COLOR YELLOW; URINE GLUCOSE-RANDOM* NEGATIVE (Negative); URINE KETONES 2+ (Negative); URINE LEUKOCYTES-REFLEX NEGATIVE (Negative); URINE PROTEIN (DIPSTICK) 2+ (Negative); URINE SPECIFIC GRAVITY >= 1.030 (1.005-1.035); URINE UROBILINOGEN 0.2 E.U./dl (0.2-1.0)
[2021-05-19 17:34] LABS: URINE NITRITE-REFLEX POSITIVE (Negative)
[2021-05-19 17:36] LABS: SQUAMOUS >10 Many /LPF (0-3)
[2021-05-19 17:39] LABS: CASTS None Seen /LPF (None Seen); CRYSTALS None Seen /LPF (None Seen); URINE RBC 1-2 Rare /HPF (NONE SEEN); URINE WBC-REFLEX 0-5 Rare /HPF (0-5)
[2021-05-19 21:50] VITALS: BP 183/83
[2021-05-19 22:23] VITALS: BP 170/83
[2021-05-20 00:02] VITALS: BP 156/80
[2021-05-20 03:44] VITALS: BP 161/86
--- NOTE | 2021-05-20 07:14 | NUR ---
ASSUMED CARE OF PT AROUND 2200. PT ASSESSED TO BE AOX1 70F PRESENTING WITH WEAKNESS, UTI, AND AMS. PT ADMIT CHECKLIST COMPLETED. RESTING QUIETLY IN ROOM, FLUIDS RUNNING, 97% ON RA, REDNESS ON SACRUM WITH NO WOUNDS, BLOOD SUGAR STABLE, VITALS WDL. PT WOKE UP AROUND 0300 IN EXTREME ANXIETY AND BEGAN REPEATING THAT SHE WAS HAVING TROUBLE BREATHING. WITH HOUSE SUP ASSESSED PT TO BE 98% ON ROOM AIR, SUGARS STABLE, BLOOD PRESSURE ELEVATED D/T ANXIETY BUT WDL, AND NO OTHER ISSUES. ATTEMPTED TO RESTART OLANZAPINE WITH 1X 5MG PO DOSE BUT DID NOT DO MUCH TO HELP. LATER STORMY PAIZ ALLOWED 1MG X1 ATIVAN WHICH ALLOWED PT TO RETURN TO REST. WILL PLAN ON RESTARTING ANXIETY AND BP MEDS IN AM. PT RESTING QUIETLY IN ROOM NOW, ALL INFORMATION PASSED ON TO DAY SHIFT RN.
[2021-05-20 07:50] VITALS: BP 180/92
--- NOTE | 2021-05-20 10:41 | 2DMMODE ---
[facility] [place] [address] 2 D/M-MODE ECHOCARDIOGRAM Name: VINITA WARD Ben Room #: 461-P ADM IN ..#: [id number] Admission: 05/19/21 Attend Phys: Bonnie Benites MD Discharge: Date of : 54 Report #: [id number] THIS REPORT FOR: cc: Jagjit Rizo James A. DO Santiago, Patrick MD [facility] ~ APPROVED REPORT Study performed: 05/20/2021 09:37:03 EXAM: Comprehensive 2D, Doppler, and color-flow Echocardiogram Patient Location: In-Patient Room #: 461 Status: routine BSA: 1.61 HR: 72 bpm BP: 180/92 mmHg Rhythm: NSR Other Information Study Quality: Adequate Risk Factors: Cardiac Risk Factors: HTN Indications COPD CAD Hypertension/HDD 2D Dimensions IVSd: 14.77 (7-11mm) LVOT Diam: 17.49 (18-24mm) LVDd: 25.35 mm PWd: 10.95 (7-11mm) LVDs: 17.01 (25-40mm) Left Atrium: 30.46 (27-40mm) Volumes Left Atrial Volume (Systole) Single Plane 4CH: 27.81 mL Single Plane 2CH: 18.73 mL Biplane LA Volume: 26.00 mL LA ESV Index: 16.00 mL/m2 Aortic Valve AoV Peak Sg.: 1.91 m/s [facility] [address] [place] [address] 2 D/M-MODE ECHOCARDIOGRAM Name: SYLVIAVINITA Ben Room #: 461-P ADM IN ..#: [id number] Admission: 05/19/21 Attend Phys: Manuel Ramirez Discharge: Date of : 54 Report #: [id number] AO Peak Gr.: 14.65 mmHg LVOT Max P.20 mmHg LVOT Max V: 1.52 m/s LYNDSEY Vmax: 1.90 cm2 Mitral Valve E/A Ratio: 0.7 MV Decel. Time: 3912.62 ms MV E Max Sg.: 0.59 m/s MV A Sg.: 0.88 m/s MV PHT: 1134.66 ms IVRT: 83.04 ms Pulmonary Vein P Vein S: 0.53 m/s P Vein A: 0.31 m/s P Vein D: 0.24 m/s P Vein A Dur.: 120.0 msec P Vein S/D Ratio: 2.21 Tricuspid Valve TR Peak Sg.: 1.50 m/s RAP Estimate: 7.00 mmHg TR Peak Gr.: 9.00 mmHg RVSP: 16.00 mmHg Left Ventricle The left ventricle is normal size. There is normal LV segmental wall motion. There is normal left ventricular wall thickness. Left ventricular systolic function is normal. The left ventricular ejection fraction is within the normal range. LVEF is 60-65%. Transmitral Doppler flow pattern suggests impaired LV relaxation. Right Ventricle The right ventricle is normal size. The right ventricular systolic function is normal. Atria The left atrium size is normal. The right atrium size is normal. Aortic Valve Aortic valve is trileaflet. Trace to mild aortic regurgitation. There is no aortic valvular stenosis. Mitral Valve The mitral valve is normal in structure. Trace mitral regurgitation. No evidence of mitral valve stenosis. Tricuspid Valve [facility] [address] [place] [address] 2 D/M-MODE ECHOCARDIOGRAM Name: WARDVINITA Room #: 461-P [facility] IN M.R.#: [id number] Admission: 05/19/21 Attend Phys: Manuel Ramirez Discharge: Date of : 54 Report #: [id number] The tricuspid valve is normal in structure. Trace tricuspid regurgitation. PAP 16 mmHg Pulmonic Valve The pulmonary valve is normal in structure. There is no pulmonic valvular regurgitation. Great Vessels The aortic root is normal in size. IVC is normal in size and collapses >50% with inspiration. Pericardium There is no pericardial effusion. There is no pleural effusion. <Conclusion> Normal left ventricle size/wall thickness Ejection fraction 60% Grade 1 diastolic dysfunction Normal right ventricle size/function Normal atrial size Trace aortic/mitral valve insufficiency Trace tricuspid valve insufficiency Pulmonary systolic pressure estimated 60 mmHg No pericardial effusion Normal aortic root size <ELECTRONICALLY SIGNED> By: Jesus Keita MD, FACC 05/20/211040 40 40 Jesus Keita MD, FACC /INF
[2021-05-20 16:45] VITALS: BP 181/91
--- NOTE | 2021-05-20 17:04 | NUR ---
Pt A & O x2. Pt VS stable. Pt received medications as ordered. Pt worked with PT/OT this shift. pt is currently roomair. Pt is x 1 assist with ADLs and cares. Pt is NSR on the tele. Pt is able to make needs known
--- NOTE | 2021-05-20 18:29 | NUR ---
pt uses bedside commode. Pt ate 75% of dinner this evening
[2021-05-20 19:33] VITALS: BP 151/83
[2021-05-21 05:04] VITALS: BP 187/90
--- NOTE | 2021-05-21 05:27 | NUR ---
Pt. rested quietly at short intervals during the night when checked on during frequent rounds. She has been having urinary frequency and has been toileted several times during the shift. Pt. is very anxious and voices many requests. Up to the bedside comode with gait belt and assistance of one. Pt. requesting trazadone and gabapentim earlier this shift. Esperanza PROOF SORTER called and meds re- ordered. Bed alarm is on.
--- NOTE | 2021-05-21 09:15 | NUR ---
RD consult received. Admit with weakness, AMS. Hx of CVA, CA, alzheimers, htn, schizophrenia. Familiar with pt from past admit on SB. Visit this am, pt eagerly awaiting breakfast to arrive, states she is very hungry. Pt reports was not eating well after stroke. Does not voice any chewing or swallowing difficulties. Wt reached lowest in 2019 of 101 lb, now stable around 130 lb. Sacral redness documented. Pt has hx of eating a vegan diet, however when asked what foods she does not eat now, only mentioned fish. BG elevated-on steroids. Continue carb control diet and pt wants supplement drink so will send glucerna. Low nutrition risk with appropriate nutrition interventions in place.
--- NOTE | 2021-05-21 09:38 | HC ---
[facility] [place] [address] CONSULTATION Name: VINITA WARD Room #: 461-P ADM IN M.R.#: [id number] Admission: 05/19/21 Attend Phys: Bonnie Benites MD Discharge: Date of : 54 Report #: [id number] THIS REPORT FOR: cc: Jagjit Rizo James A. DO Khosla, Parveen K. MD ~ DATE OF SERVICE: 05/20/2021 HISTORY OF PRESENT ILLNESS: A 70-year-old female patient who was evaluated by me for altered mental status. The patient was discussed with hospitalist, Dr. Benites. This patient's record indicates that she was brought because the family raised some concern. The patient gives a history that she does not have any family history. She has a brother, who does not help him because he was sick. She was living independently. 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 Subsequently, she started getting Meals on Wheels, which she indicated free. She has a pretty significant tremor and she says she was diagnosed with essential tremor and it was probably done at [facility], although she did not see any Neurologist in the office at [facility]. REVIEW OF SYSTEMS: Indicated that she is weak on the left side. She said leg is weaker for several months if not years. Left upper extremity is also weak. She has some generalized weakness. REVIEW OF SYSTEMS: Positive for anxiety, depression, schizophrenia, some history of dementia, but she said she was living independently before the stroke happened. History of aspiration pneumonia and stenting, cataract surgeries, hypothyroidism, hyperlipidemia. She had apparently a stroke, for which she was in [facility]. She does not know what testing was done. I have asked for the records. She does have a history of laminectomy in the past, but she does not tell me whether the weakness in the leg is related to that or not. Some of the records indicate that as per son, she is not eating at all, but she says that the only relative she has is the brother, though she may be confused, but we need to confirm that. This was a relevant 14-point review of system. PAST MEDICAL HISTORY: Positive for stroke, but she was in [facility] and I am trying to get those records. FAMILY HISTORY: Negative for early age stroke. SOCIAL HISTORY: She says she does not drink alcohol. PHYSICAL EXAMINATION: Indicate she is alert. She could not tell me what month it is, but she knew what hospital she is in and she knew Víctor is the president. Her speech looks intact. Cranial nerve examination the best it could be carried out does not appear to be showing much focality, although it was difficult to carry out. She is weak in the left upper and left lower extremity, [facility] [address] [place] [address] CONSULTATION Name: VINITA WARD Room #: 461-P ADM IN M.R.#: [id number] Admission: 05/19/21 Attend Phys: Bonnie Benites MD Discharge: Date of : 54 Report #: [id number] but she says it is old. She sometimes did well with the position, sometimes she does not. I cannot tell about sensation because of that. Reflexes again she did not relax. She did reasonably well with [id number]. I could not look at the fundus. There is no meningeal sign. There is no carotid bruit. There is no thyroid mass. Hearing and vision looks adequate. No facial asymmetry. Pulses are palpable. VITAL SIGNS: Blood pressure is 180/92, temperature is normal throughout the hospital. Pulse rate is 88. LABORATORY DATA: She did have an MRI of the brain, which I reviewed the films and that showed what looks like a subacute stroke in the parietal occipital area. She had a workup in [facility] and we will try to get that. IMPRESSION: Somewhat of a confusing history. I basically need to get the record from [facility] to see what they did. Some part of the memory looks reasonably well and I think we should get a formal neuropsychological testing done, but I will get more records from [facility] and look at those records and then decide about the further management. We will follow this patient with you. Thank you very much for this referral. <ELECTRONICALLY SIGNED> By: Sunday Rodriguez MD 05/21/21 0938 [id number] Sunday Rodriguez MD /nt
--- NOTE | 2021-05-21 11:36 | NUR ---
PT ADMITTED RELATED TO WEAKNESS, AMS; ACUTE UTI; S/P FALL. CM REVIEWED CHART AND SPOKE WITH CARE TEAM. PT HADN'T BEEN ALERT ENOUGH TO ASSESS YESTERDAY CM CALLED AND SPOKE WITH HER BROTHER LAINE WARD . HE INDICATED THAT PT RESIDES IN AN APARTMENT ALONE WITH 12 STEPS TO ENTER AND NO STEPS INSIDE. HE INDICATED THAT PT HAS A FWW FOR HOME USE. HE INDICATED THAT PT HAD INITIALLY FALLED IN HER PARKING LOT AND GONE TO [facility] WHERE IT WAS FOUND SHE HAD STROKES. HAD GONE TO [facility] HERE AT [facility] IN NOVEMBER 2018 AND HAD GONE SKILLED AND SINCE RETURNED TO HER APT ALONE. BROTHER AND SISTER IN LAW HELP PT WITH ERRANDS AND CHECK ON HER. SHE HAD HH IN PAST BUT NOTHING RECENT [facility] HH. 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 BROTHER SEEMED RECEPTIVE TO INITIAL SHORT TERM POST ACUTE CARE STAY WITH POTENTIAL TRANSITION TO LTC/AL.. CM EMAILED HIM [facility] SNF LIST FOR REVIEW. PT IS MORE ALERT THIS DAY. CM TO FOLLOW UP WITH PT AND BROTHER REGARDING DC PLANNING. NEUROLOGY CONSULTED.
--- NOTE | 2021-05-21 18:48 | NUR ---
Pt A & O x2. Pt received medications as ordered. Pt is x1 assist with ADLs and cares. Pt is room air. Pt is NSR on the tele. Pt uses walker for mobility. Pt VS stable. Pt worked with PT/OT this shift. Pt uses bedside commode. Pt is able to make needs known
[2021-05-21 19:36] VITALS: BP 185/83
[2021-05-22 00:38] VITALS: BP 164/85
[2021-05-22 04:38] VITALS: BP 151/77
--- NOTE | 2021-05-22 07:12 | NUR ---
PATIENT AOX1 CONFUSED AND ANXIETY. PATIENT NEEDS MAXIMUM ASSISTANCE WITH ADL, BED MOBILITY, TRANSFER AND TOILETING. FALL PRECAUTION IN PLACE. PATIENT IN BED ASLEEP AT THIS TIME BREATHING REGULAR AND UNLABOURED.
[2021-05-22 07:54] VITALS: BP 148/81
[2021-05-22 16:13] VITALS: BP 143/79
--- NOTE | 2021-05-22 16:51 | NUR ---
CM FOLLOWED UP WITH PT'S BROTHER AND HE ASKED THAT REFERRALS BE SENT TO [facility], AND [facility]. INITIAL SNF POSSIBLE TRANSITION TO [place]TC [place] [facility] PENDING. [facility] INDICATED THEY DON'T TAKE MEDICAID PENDING AND THEIR LTC IS FULL... YULIET CAN ACCEPT BUT MAYBE NOT UNTIL SAT DEPENDEING ON BEDS. CM TO FOLLOW UP WITH FAM AND ASSIST WITH DC PLANNING.
[2021-05-22 21:10] VITALS: BP 152/89
[2021-05-23 00:20] VITALS: BP 174/91
--- NOTE | 2021-05-23 03:19 | NUR ---
PATIENT AOX1 CONFUSED AND FORGETFUL. PATIENT HAS URINE FREQUENCY/URGENCY THIS SHIFT,PATIENT YELLS IN THE UNIT FOR HELP, BUT PATIENT IS EASY TO REDIRECT. PATIENT ENCOURAGED FLUIDS.PATIENT INCONTINENT THIS SHIFT.PATIENT TURNED Q 2 HOURS. FALL PRECAUTION WITH REACH. PATIENT IN BED ASLEEP AT THIS TIME BREATHING REGULAR AND UNLABOURED.
[2021-05-23 04:31] VITALS: BP 164/86
[2021-05-23 07:00] VITALS: BP 158/76
[2021-05-23 14:56] LABS: CHOLESTEROL 151 mg/dL (<200); HDL CHOLESTEROL 70 mg/dL (>40); LDL CHOLESTEROL 54 mg/dL (<100); TC:HDL 2.2 Ratio (Not establshd); TRIGLYCERIDE 135 mg/dL (<150); VLDL 27 mg/dL (<40)
[2021-05-23 15:07] LABS: SERUM ASSESSMENT Clear
--- NOTE | 2021-05-23 16:44 | NUR ---
ANTICIPATE THAT PT WILL BE MEDICALLY STABLE AND HAVE INSURANCE AUTH TO DC TO [facility] TOMORROW Wednesday05/24/21. CONTACT FACILITY AT TO FACILITATE DC TRANSPORT FAX ORDERS TO .
[2021-05-23 19:47] VITALS: BP 131/80
[2021-05-24 00:30] VITALS: BP 165/85
[2021-05-24 05:57] VITALS: BP 163/88
--- NOTE | 2021-05-24 06:41 | NUR ---
Pt. rested quietly at short intervals during the night when checked on during frequent rounds. She has been having urinary frquency and calls out often to use the bedside comode. Bed alarm is on. Up to the comode with assistance of one.
[2021-05-24 08:47] VITALS: BP 147/87
[2021-05-24] MEDS ORDERED: B-12500 MCG PO (11:16)
[2021-05-24] MEDS ORDERED: NORVASC10 MG PO (11:16)
[2021-05-24] MEDS ORDERED: CLOPIDOGREL75 MG PO (11:16)
[2021-05-24] MEDS ORDERED: CEPHALEXIN500 MG PO (11:16)
[2021-05-24] MEDS ORDERED: ZYPREXA5 MG PO (11:16)
--- NOTE | 2021-05-24 12:05 | NUR ---
ASSESSMENT CHARTED. PT ALERT AND ORIENTED. VSS. PRN PAIN MED GIVEN FOR GRAFF WITH PARTIAL RELIEF. SEEN BY DR. MCNALLY. ORDERS GIVEN TO DISCHARGE PT TO SNF. PT AND FAMILY NOTIFIED.
--- NOTE | 2021-05-24 12:45 | NUR ---
PT DISCHARGING TODAY [facility]/SUMMARY TO FACILITY RECEIVED CONFIRMATION TRANSPORT ALREADY ARRANGED FOR 1100 TODAY. NURSE NOTIFIED PT'S FAMILY OF TIME OF TRANSPORT. CHART COPY PER US
== END 2021-05-24 12:14 | DRG 871 ==
LOC: ER 13:03 → 4W 18:27 → EROBS 18:27 → 4W 21:51
PROVIDERS: Emergency Medicine; Psychiatry & Neurology Neurology; ADMIT Hospitalist; ATTEND Hospitalist
DX: A41.51 Sepsis due to Escherichia coli [E. coli] (principal); G93.41 Metabolic encephalopathy; I63.9 Cerebral infarction, unspecified; N39.0 Urinary tract infection, site not specified; N17.9 Acute kidney failure, unspecified; J44.1 Chronic obstructive pulmonary disease with (acute) exacerbation; G81.94 Hemiplegia, unspecified affecting left nondominant side; F01.50 Vascular dementia, unspecified severity, without behavioral disturbance, psychotic disturbance, mood disturbance, and anxiety; F41.9 Anxiety disorder, unspecified; E78.5 Hyperlipidemia, unspecified; I25.10 Atherosclerotic heart disease of native coronary artery without angina pectoris; F32.9 Major depressive disorder, single episode, unspecified; Z60.2 Problems related to living alone; Y99.8 Other external cause status; R53.81 Other malaise; Z66 Do not resuscitate; I10 Essential (primary) hypertension; E53.8 Deficiency of other specified B group vitamins; I27.21 Secondary pulmonary arterial hypertension; E03.9 Hypothyroidism, unspecified; S00.93XA Contusion of unspecified part of head, initial encounter; Z82.49 Family history of ischemic heart disease and other diseases of the circulatory system; I25.2 Old myocardial infarction; Z98.42 Cataract extraction status, left eye; Z98.41 Cataract extraction status, right eye; Z95.5 Presence of coronary angioplasty implant and graft; Z83.6 Family history of other diseases of the respiratory system; Z80.8 Family history of malignant neoplasm of other organs or systems; Z91.14 Patient's other noncompliance with medication regimen; Z79.82 Long term (current) use of aspirin; Z79.899 Other long term (current) drug therapy; X58.XXXA Exposure to other specified factors, initial encounter; Y93.89 Activity, other specified; Y92.89 Other specified places as the place of occurrence of the external cause; Z20.822 Contact with and (suspected) exposure to COVID-19
CPT/HCPCS: 10040; 10045